=== PATIENT | male | born 1960 | race Caucasian/White ===

== ENCOUNTER 2025-03-09 17:42 | Inpatient (IN) | payer OTHER, SELFPAY ==
[2025-03-09] VITALS (18 sets, daily range): BP systolic 74–111; BP diastolic 45–62; BMI 33.1; BMI 33.2
[2025-03-09 15:53] LABS: Hematocrit 23.2 % (39.0-52.0); Hemoglobin 8.1 g/dL (13.0-18.0); Mean Corp Hgb Conc. 34.9 g/dL (33.0-37.0); Mean Corpuscular Volume 83.8 fL (80.0-94.0); Platelet Count 288 10^3/uL (130-400); Red Cell Dist. Width 14.1 % (11.5-14.5)
--- NOTE | 2025-03-09 15:57 | ED.GENMED ---
History of Present Illness
General
Chief Complaint: Rectal Bleeding
Source: patient and family (Sister)
Exam Limitations: none
Time Seen by Provider: 03/09/25 15:38
History of Present Illness
History of Present Illness:
64-year-old male history of alcohol abuse stopped 2 weeks ago. Has had ongoing melena. Severe weakness. Lightheaded. No chest pain or shortness of breath. No fever.
Past History
Past History
ED Past Medical History: HTN and Other (Neuropathy/chronic pain)
Social History
Tobacco: Smoker
Personal: Single
Living: with family
Employment: Disabled
Review of Systems
Review of Systems
All Other Systems: Not applicable
Constitutional: Denies fever or chills
Respiratory: Reports no symptoms
Cardiac: Reports no symptoms
Phy Exam
Physical Exam
Physical Exam:
GENERAL: Alert and oriented. Pale. Hypotensive. Old for stated age.
EYE: Orbits normal.
NECK: Supple, no significant adenopathy.
ENT: Pharynx without erythema
CARDIAC: Regular rate and rhythm without any obvious murmurs.
LUNGS: Clear breath sounds,normal
ABDOMEN: Soft, without focal tenderness or distention. Melanotic dark stool with diarrhea. Test positive
NEUROLOGICAL: Alert and oriented , grossly non-focal
SKIN: Warm and dry, no rash or lesion, no discoloration, skin intact.
MUSCULOSKELETAL: No edema. Right BKA
PSYCH: Normal and appropriate interaction.
Course
Orders/Labs/Results
Orders:
Orders
03/09/25 Dinner
NPO
Allow oral meds: Yes
Allow clear liquids: Sips of Clears
NPO with Ice Chips: No
03/09/25 15:08
Electrocardiogram (*1) Urgent
Reason for Study: Fatigue / Weakness
03/09/25 15:09
EKG- Treatment ONCE
03/09/25 15:35
Type+Screen Urgent
CMP [Comprehensive Metabolic Panel] Urgent
Complete Blood Count/With Diff Urgent
Troponin I Urgent
03/09/25 15:47
* Blood Bank Products Routine
Blood Bank Products: *Packed RBC Leuko (PRBC's
Quantity: 2
Transfuse Today: Yes
Reason: Bleeding
IV Insert/Care/Rem.- Treatment PRN
03/09/25 15:48
IV Insert/Care/Rem.- Treatment PRN
Pantoprazole 80 mg/100 ml Nss [Protonix] 80 mg in 100 ml IV NOW
Pantoprazole [Protonix IV] 80 mg IV NOW STA
03/09/25 15:53
PT/INR [Prothrombin Time] Urgent
03/09/25 16:00
Urinalysis Reflex To Culture Urgent
03/09/25 16:33
Admit/Transfer Patient As Directed
Co-Sign Provider:
Level of Care: Inpatient admission
Assign to:: IMU- Intermediate Care
Physician / Group: Gopal Costa
Diagnosis: GI bleed, hypotension
Reason for Hospitalization: GI bleed, hypotension
Expected length of stay greater than two midnights?: Yes
ELOS- Estimated Length of Stay in days: 3
I certify the patient meets the requirements for IP care: Yes
03/09/25 16:34
PRN Pain Medication Management As Directed
May give lesser potent ordered pain med per pt: Yes
preference::
Protocol:: Medication orders for pain may be administered in a
manner that supports deferring to patient preference
when the pt is:
- Requesting an ordered lesser potent pain medication.
Least to most potent pain medications are defined
as: acetaminophen < NSAID < tramadol < opioids
(morphine, oxycodone, hydromorphone).
- Requesting a lesser dose of the same medication IF
ORDERED.
- Requesting a less intrusive route of administration
if both routes are prescribed by the provider (PO <
IV).
03/09/25 16:35
Code Status As Directed
Resuscitation Status: Full Code
03/09/25 17:04
Blood Culture Q30M
AMANDA Source: Blood/Venous
Specimen Description:
03/09/25 17:11
Lactic Acid Q4H
Comment: CANCEL 2nd LACTIC ACID IF 1st LACTIC ACID IS LESS THAN 2
Blood Culture Q30M
AMANDA Source: Blood/Venous
Specimen Description:
03/09/25 17:34
0.9% Sodium Chloride 500 ml [Nss] 500 ml IV BOLUS
03/09/25 19:03
0.9% Sodium Chloride 1000 ml [Nss] 1,000 ml IV 125 mls/hr
03/09/25 19:03
GASTROINTESTINAL CONSULT Routine
Consulting Provider: Fabien Martin
Was physician already notified: Yes
Reason for consult: Gi bleed
Activity As Directed
Activity Level: Bedrest
INT (Intravenous Needle Therapy) As Directed
Comment: Place 2 IV catheters of the largest bore possible until stable
Pneumatic Compression Sleeves As Directed
Type: Knee high
Vital Signs As Directed
Frequency: Per unit guidelines
DX Deep Vein Thrombosis Video Routine
03/09/25 20:00
Lactic Acid Q4H
Comment: CANCEL 2nd LACTIC ACID IF 1st LACTIC ACID IS LESS THAN 2
03/10/25 06:00
Basic Metabolic Panel IN AM
Complete Blood Count/No Diff IN AM
03/10/25 23:55
Complete Blood Count/No Diff Routine
Comment: after blood transfusion
03/11/25 06:00
Basic Metabolic Panel IN AM
Complete Blood Count/No Diff IN AM
03/12/25 06:00
Basic Metabolic Panel IN AM
Complete Blood Count/No Diff IN AM
Abnormal Lab Results
03/09/25
15:35
WBC 24.6 H 10^3/uL
(4.8-10.8)
RBC 2.77 L 10^6/uL
(4.70-6.10)
Hgb 8.1 L g/dL
(13.0-18.0)
Hct 23.2 L %
(39.0-52.0)
Abs Immat Gran (auto) 0.2 H 10^3/uL
(0-0.05)
Absolute Neuts (auto) 22.4 H 10^3/uL
(1.4-6.5)
Absolute Lymphs (auto) 0.7 L 10^3/uL
(1.2-3.4)
Absolute Monos (auto) 1.2 H 10^3/uL
(0.1-0.6)
Immature Gran % 1.0 H %
(0-0.5)
Neutrophils % 91.1 H %
(42.2-75.2)
Lymphocytes % 2.8 L %
(20.5-51.1)
Sodium 125 L mmol/L
(135-145)
Chloride 94 L mmol/L
(98-107)
BUN 27 H mg/dl
(9-20)
Glucose 134 H mg/dl
(70-99)
Total Protein 5.9 L g/dl
(6.3-8.2)
Albumin 3.1 L g/dl
(3.5-5.0)
Crossmatch IS Only See Detail
03/09/25 15:35
03/09/25 15:35
Vital Signs
Initial and Last Documented VS:
Initial Vital Signs
Temp Pulse Resp
98 F 86 18
03/09/25 15:03 03/09/25 15:03 03/09/25 15:03
Last Documented Vital Signs
Temp Pulse Resp BP Pulse Ox
98 F 89 17 85/48 100
03/09/25 15:03 03/09/25 18:17 03/09/25 18:00 03/09/25 18:00 03/09/25 17:15
*Pulse Oximetry
SaO2: 96
Oxygen Mode of Delivery: Room air
Patient hypoxic: no
*EKG
Interpreted by ED Provider?: Yes
Interpretation: abnormal
Comparison EKG: changes noted
Heart Rate: 92
Rate: normal
Rhythm: sinus and PAC's
[place]: left axis deviation
Interval: normal interval
QRS Pattern: normal QRS
Ischemia: non-specific ST changes
*Technical Marketing Consultant Interpretation
Rate: normal
Interpretation: normal
Heart Rate: 94
Rhythm: sinus
*Critical Care Note
Total Time (30-74mins, 75-104mins- exclusive of procedures): 45
Update Note
Update Note:
Patient remains mildly hypotensive. Leukocytosis likely reactive. Nothing clinically to suspect sepsis
ED Attending Note
-
Portions of this chart may have been created with voice recognition software.� Occasional wrong word or��sound alike� substitutions may have occurred due to the inherent limitations of voice recognition software.
Discharge Plan
Departure
Patient Disposition: Admit
Date of Disposition: 03/09/25
Time of Disposition: 15:59
Presentation/result/management discussed w/ accepting MD/DO: Gastroenterology
Discharge Problem:
Cardiogenic shock, Secondary to GI bleed, Hyponatremia, History of alcohol abuse
Interventions
Interventions:
*Risk Screen - Suicide Last Done: 03/09/25 15:03
*General Assessment Last Done: 03/09/25 15:03
*Neglect/Abuse Screening Last Done: 03/09/25 15:03
*ED COVID-19 Vaccine History Last Done: 03/09/25 16:33
*ED Influenza Vaccine History Last Done: 03/09/25 16:33
[facility] Assessment Last Done: 03/09/25 16:33
ED- Cardiac Assessment Last Done: 03/09/25 16:33
ED- Pulmonary Assessment Last Done: 03/09/25 16:33
[2025-03-09 16:00] LABS: ALT (SGPT) 18 U/L (0-50); AST (SGOT) 20 U/L (17-59); Albumin 3.1 g/dl (3.5-5.0); Alkaline Phosphatase 44 U/L (38-126); Blood Urea Nitrogen 27 mg/dl (9-20); Calcium 9.1 mg/dl (8.4-10.2); Carbon Dioxide 25 mmol/L (22-30); Chloride 94 mmol/L (98-107); Estimated Creatinine Clearance 78 ml/min; Glucose 134 mg/dl (70-99); Potassium 4.3 mmol/L (3.5-5.1); Sodium 125 mmol/L (135-145); Total Protein 5.9 g/dl (6.3-8.2); eGFR > 60.00
[2025-03-09 16:09] LABS: INR 1.04; PT 13.9 Sec (11.4-14.6)
[2025-03-09 16:11] LABS: Troponin I 0.017 ng/ml
[2025-03-09 16:17] LABS: Nucleated Red Blood Cells % 0 % (-)
[2025-03-09] MEDS: PROTONIX IV 80 MG IV (16:21)
[2025-03-09] MEDS: PROTONIX 100 IV (16:21)
--- NOTE | 2025-03-09 16:39 | HPS.HSE ---
Family Physician
-
Family Physician: KATHI Woodward
Chief Complaint
-
Melena, syncope
History of Present Illness
Patient is a 64-year-old male with past medical history of attention deficit disorder, history of right BKA, alcohol use disorder, wheelchair-bound, essential hypertension, hyperlipidemia was brought in by family member after patient was noted to
having increased generalized weakness and ongoing melena for few days. Patient have history of alcohol use disorder and stopped drinking approximately 2 weeks back. For last 1 week patient was noting black stool, patient denies of having any
previous history of melena. Denies of previous history of peptic ulcer disease/GI bleed. In the morning patient was noted to having little bit of bright red blood in the stool as well. No reported abdominal pain/nausea/vomiting. Patient denies
of having any history of liver disorder. Patient also had an episode of syncope when was on commode, apparently patient remembering of waking up after 1 hour or so. Patient complained of some preceding dizziness/palpitation.
Denies of having any other ongoing problems of headache/chest discomfort/shortness of breath/dysuria.
Medical History
Past Medical History
Past Medical History: Reports Other
Additional Past Medical History:
attention deficit disorder, history of right BKA, alcohol use disorder, wheelchair-bound, essential hypertension, hyperlipidemia
Past Surgical History: Reports Other
Social History
Tobacco: Non-smoker
Alcohol: Former
Drug: None
Personal:
Living: With Family
Family History
Family History: Not pertinent
Allergies / Home Medications
Allergies reflects when Allergies were last updated in [employer].
Home Medications with original date entered in [employer]
Allergy/Medication List:
Allergies
Allergy/AdvReac Type Severity Reaction Status Date / Time
No Known Allergies Allergy Unverified 10/12/21 10:21
Home Medications
acetaminophen 650 mg tablet,extended release (Tylenol Arthritis Pain) 650 mg PO BIDPRN PRN mild pain 10/12/21
aluminum-mag hydroxide-simethicone 200 mg-200 mg-20 mg/5 mL oral susp 15 ml PO TIDPRN PRN gerd 03/09/25
duloxetine 40 mg capsule,delayed release 40 mg PO BIDPRN PRN mild pain 03/09/25
lisinopril 20 mg tablet 20 mg PO DAILY Blood Pressure 03/09/25
methylphenidate HCl 20 mg tablet 20 mg PO TID Mental Health/Anxiety 03/09/25
rosuvastatin 10 mg tablet (Crestor) 10 mg PO DAILY High Cholesterol 03/09/25
Review of Systems
-
A 12 point ROS was completed and negative except as noted: Yes
Physical Exam
Vital Signs
Vital Signs
Temp Pulse Resp BP Pulse Ox
98 F 75 22 86/45 94
03/09/25 15:03 03/09/25 16:30 03/09/25 16:30 03/09/25 16:30 03/09/25 16:33
Physical Exam
General: No Apparent Distress
HEENT: Atraumatic
Respiratory: Clear
Cardiac: S1/S2 and Regular Rhythm; No Murmur or Rub
GI: Soft, Non Tender and Non Distended; No Organomegaly
Musculoskeletal: Other (Right BKA, left leg scabbing skin)
Skin: Other (Fungal infection of left axilla and groin); No Rash
Neuro: Nonfocal/grossly intact
Laboratory Results
-
03/09/25 15:35
03/09/25 15:35
Laboratory Results
PT 13.9 Sec (11.4-14.6) 03/09/25 15:53
INR 1.04 03/09/25 15:53
Total Bilirubin 0.4 mg/dl (0.2-1.3) 03/09/25 15:35
AST 20 U/L (17-59) 03/09/25 15:35
ALT 18 U/L (0-50) 03/09/25 15:35
Alkaline Phosphatase 44 U/L (38-126) 03/09/25 15:35
Troponin I 0.017 ng/ml 03/09/25 15:35
Impression/Plan
-
1. Melena
Acute blood loss anemia
- Baseline hemoglobin of 14 in October 19. This admit hemoglobin of 8.1
- Reported melena ongoing for few days, noted to having bright red blood in the stool today as well per family
- Denies of any previous history of peptic ulcer disease/not on blood thinners/no history of liver disorder
- Patient was started on IV Protonix drip
- Patient getting 1 unit PRBC, follow-up hemoglobin after the
- Made patient n.p.o.
- GI consulted for further evaluation
2. Hypotension
- Patient blood pressure soft, providing NS 500 mL bolus
- May require further bolus if blood pressure not improved after blood transfusion
- Will monitor in IMU for tonight
3. Fungal skin infection
Suspected superimposed Cellulitis
- Leukocytosis of 25k, afebrile
- Involving left groin and lower abdomen/groin
- Skin quite erythematous and tender in left axilla
- Start patient on IV vancomycin and will downgrade to Ancef
4. Attention deficit disorder
- Continue home dose of Adderall 20 mg 3 times daily
5. alcohol use disorder
- Patient had stopped drinking approximately 2 weeks back
- Continuation of alcohol abstinence will be recommended moving forward
6. Syncope episode
- Reported syncopized at home when was on commode
- Likely combination of vasovagal due to volume depletion/blood loss and hypotension related
- continue monitoring
history of right BKA
wheelchair-bound
essential hypertension - hold bP medication
hyperlipidemia
DVTPPX - SCD
Full code
Total time spent : 78 mins
I personally saw and examined the patient.
I have reviewed all diagnostic interpretations and treatment plans as written.
Time includes patient management by me, time spent at the patients bedside, time to review lab and imaging results, discussing patient care, documentation in the medical record, and time spent with the family or caregiver and discussing care plan
with RN/Consultants.
[2025-03-09] MEDS: ANCEF 10 IV (18:09)
[2025-03-09] MEDS: NSS 500 IV (18:23)
--- NOTE | 2025-03-09 20:07 | PTCARENOTE ---
Patient transported to IMU via stretcher. Pt slid over onto bed. Pt receiving first 500ml NSS bolus running on admission to IMU. Pt to receive 1000L bolus as well as PRBC's. Sent to first unit of PRBC's. Pt states dizziness and feeling lightheaded.
BP is soft. Pt had a large dark red BM. KATHI Farrell made aware of current status. Care is ongoing.
[2025-03-09] MEDS: NSS 1000 IV ×3 (20:31→22:31)
[2025-03-09] MEDS: ZOFRAN 4 MG IV (21:24)
--- NOTE | 2025-03-09 23:24 | PTCARENOTE ---
Patient received a total of 2.5L bolus fluids. Pt finished getting 1 unit PRBC's. Second unit of PRBC's transfusing currently. Pt has maintenance fluids running at 125ml/hr. Pt is actively still having loose dark red/burgundy stools. Pt appears
pallor and states he has been experiencing symptoms for a week. Pt having nausea, KATHI Farrell ordered dose of IV Zofran. Pt states minimal relief. Pt AAOx3. BP soft systolic in the 90s s/p bolus fluids. KATHI Farrell increased INF 150ml/hr. [facility] park is
within reach.
--- NOTE | 2025-03-09 23:32 | W.PN.UPDATE ---
Update Note
Progress Note Update
-Patient is hypotensive after receiving bolus 2500cc and while on IVF/ NSS 125/hr.
-Rate changed to 150s and another 500cc bolus was given, patient still hypotensive with SBP 70s-80s. Currently patient is receiving blood transfusion.
-levophed started
-Recheck hgb level with no changes after blood transfusions, patient had 5-6 bloody bm at night and giving the hypotension and pressors requirements will give another unit of blood.
-Will monitor h&h q 6 hrs
[2025-03-10] VITALS (40 sets, daily range): BP systolic 65–130; BP diastolic 38–98
[2025-03-10 00:17] LABS: Urine Character Clear (Clear)
[2025-03-10 00:28] LABS: Urine Squamous Cell 0-2 /LPF (Few)
[2025-03-10 00:29] LABS: Urine Red Blood Cell 0-2 /HPF (0-2)
[2025-03-10] MEDS: ANCEF 10 IV ×2 (01:18→13:04)
[2025-03-10] MEDS: PROTONIX 100 IV ×3 (01:18→23:35)
[2025-03-10] MEDS: COMPAZINE 5 MG IV (01:18)
[2025-03-10] MEDS: LEVOPHED 250 IV ×2 (02:14→13:17)
--- NOTE | 2025-03-10 02:26 | PTCARENOTE ---
Patient received 2 units PRBC's. Pt has had 4 large burgundy loose stools. Pt hypotensive. BP systolic in the 70's. KATHI Farrell made aware, Levophed gtt ordered for MAP >65, see JUN.
[2025-03-10] MEDS: NSS 500 IV (02:31)
[2025-03-10] MEDS: NSS 1000 IV ×2 (03:00→09:58)
[2025-03-10 04:31] LABS: Blood Urea Nitrogen 23 mg/dl (9-20); Calcium 8.2 mg/dl (8.4-10.2); Carbon Dioxide 23 mmol/L (22-30); Chloride 102 mmol/L (98-107); Estimated Creatinine Clearance 76 ml/min; Glucose 101 mg/dl (70-99); Potassium 4.6 mmol/L (3.5-5.1); Sodium 129 mmol/L (135-145); eGFR > 60.00
[2025-03-10 05:05] LABS: Hematocrit 24.5 % (39.0-52.0); Hemoglobin 8.1 g/dL (13.0-18.0); Mean Corp Hgb Conc. 33.1 g/dL (33.0-37.0); Mean Corpuscular Volume 89.4 fL (80.0-94.0); Platelet Count 196 10^3/uL (130-400); Red Cell Dist. Width 14.6 % (11.5-14.5)
--- NOTE | 2025-03-10 06:52 | CON.GI ---
Addendum entered and electronically signed by Gin Rubio Do, MD 03/10/25 10:35:
I saw and examined the patient.
The AMMONIA BOX OPERATOR's note was reviewed and I agree with the note.
Comment: Mr Sullivan is a 64yo M with h/o ETOH abuse, HTN and BKA with chronic pain who was admitted for SOB and LH. GI consulted for anemia Hbg 8.1 down from 14 in 2021 with dark heme + stool and burgundy stools. He also has limited ROM in
shoulder concerning for cellulitis. He's never had EGD. Last Cscope >10yrs ago. Vitals hypotensive on levophed. NTTP, NABS. Labs reviewed Hbg 8.1 to 8.1 after 2u PRBC overnight.
Impression
- Burgundy stools and acute anemia
Ddx includes ulcer, ectasia or occult malignancy. Also consider diverticular.
- Wt loss
- Change in bowel habits
- GERD
- Shoulder pain
- Leukocytosis
- SOB/LH
- ADD
- ETOH use
- HTN
- Hyperlipidemia
- OP
- Chronic pain
- R BKA
Recommendations
- Recommend urgent EGD/enteroscopy today
- Serial H/H. Awaiting third transfusion today
- 2 large bore IVs
- NPO for now
- Agree with infectious workup
- Await iron studies
Above d/w hospitalist. Will follow with you
Original Note:
Consultation
-
Date/Time Consultation Requested: 03/09/25 1900
Date/Time Consultation Performed: 03/10/25 0830
Requesting Provider: Geo Costa MD
Performing Provider: KATHI Ron, Gin Painter MD
Reason for Consultation: black stools
Medical History
Chief Complaint / HPI
History of Present Illness:
Pt is a 64yo with hx HTN, hypercholesterolemia, anxiety, ADD, ETOH abuse, BKA, neuropathy, chronic pain presents to ER with rectal bleeding with lightheadedness and shortness of breath. Rectal in ER with dark heme + stool and also noted with
hypotension with syncope and skin infection with leukocytosis. Labs on admission with WBC 24,600, hbg 8.1 with last hbg 14.3 in 2021, platelets 288, INR 1.04, Na 125, BUN27, creat 1.3, bili 0.4, AST 20, ALT 18, alk phos 44, albumin 3.1.
In review with patient he admits to not feeling well for last week. About 2 weeks ago reached limit of ETOH use and stopped drinking. He declined to come to hospital but then noted passing out by family and agreed to come. He admits to
occasional odynophagia, + occasional dysphagia with food sticking in mid esophagus. He has chronic GERD not on any medications. He also admits admits to recurrent episode of vomiting. He was consume same amount of food and drinks and vomiting
some days and not on other days. He also admits to mid abdominal pain without pattern of what makes pain better or worse. He recently over last week noted dark stools but also admits to some dark red stools with chronic alternating diarrhea and
constipation. No hx EGD in past. Prior colonoscopy about 10 years ago with polyps done through [facility]. + wt loose was about 350 lbs 1 years ago now 240 range. No NSAID or anticoagulation use.
Past Medical History
Past Medical History: HTN, Hypercholesterolemia, Psychiatric (ADD, ETOH abuse, anxiety ) and Other (gout, neuropathy, chronic pain, anemia, osteoporosis )
Past Surgical History: Orthopedic (ankle surgery ) and Other (right BKA-- due to complications with multiple surgeries -- pt would not talk about details )
Social History
Tobacco: Smoker
Alcohol: Chronic Alcoholic (last drink 2 weeks ago )
Drug: None
Living: With Family (sister )
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
Family History
Family History: Other (both parents with hx colon CA in 80's)
Allergies / Home Medications
Allergy/AdvReac Type Severity Reaction Status Date / Time
No Known Allergies Allergy Unverified 10/12/21 10:21
�Medication �Instructions �Recorded
acetaminophen 650 mg 650 mg PO BIDPRN PRN mild pain 10/12/21
tablet,extended release (Tylenol
Arthritis Pain)
aluminum-mag hydroxide-simethicone 15 ml PO TIDPRN PRN gerd 03/09/25
200 mg-200 mg-20 mg/5 mL oral susp
duloxetine 40 mg capsule,delayed 40 mg PO BIDPRN PRN mild pain 03/09/25
release
lisinopril 20 mg tablet 20 mg PO DAILY Blood Pressure 03/09/25
methylphenidate HCl 20 mg tablet 20 mg PO TID Mental Health/Anxiety 03/09/25
rosuvastatin 10 mg tablet (Crestor) 10 mg PO DAILY High Cholesterol 03/09/25
Review of Systems
-
History Source: Patient
Constitutional: Reports Weight Loss and Fatigue
EENT: Reports No Symptoms
Respiratory: Reports Trouble Breathing
Cardiac: Reports Syncope
Abdomen/GI: Reports Abdominal Pain, Nausea, Vomiting, Diarrhea (with dark stools), Bloody Stools (dark red stools) and Black Stools
: Reports No Symptoms
Musculoskeletal: Reports Other (weakness with ambulation )
Skin: Reports Rash (under skin fold arm pit and groin area )
Neurological: Reports Dizzy and Weakness
Endocrine: Reports No Symptoms
Hematologic/Lymphatic: Reports Bleeding
Vital Signs
Temp Pulse Resp BP Pulse Ox
99.2 F 66 12 105/55 100
03/10/25 03:00 03/10/25 06:00 03/10/25 06:00 03/10/25 06:00 03/10/25 06:00
Physical Exam
Exam
General: No Apparent Distress and Other (pale appearing )
HEENT: Normocephalic and Anicteric
Respiratory: Clear
Cardiac: Other (bradicardia )
GI: Soft, Non Distended and Tender (minimal mid abdomen )
Rectal: Other (heme + dark stools)
Musculoskeletal: No Clubbing and No Cyanosis
Skin: Warm and Dry
Neuro: Awake, Alert and AO x 3
Psych: Calm
Results
WBC 15.9 10^3/uL (4.8-10.8) H 03/10/25 03:53
Hgb Cancelled 03/10/25 14:30
Hct Cancelled 03/10/25 14:30
MCV 89.4 fL (80.0-94.0) 03/10/25 03:53
Plt Count 196 10^3/uL (130-400) D 03/10/25 03:53
Absolute Neuts (auto) 22.4 10^3/uL (1.4-6.5) H 03/09/25 15:35
PT 13.9 Sec (11.4-14.6) 03/09/25 15:53
INR 1.04 03/09/25 15:53
Sodium 129 mmol/L (135-145) L 03/10/25 03:53
Potassium 4.6 mmol/L (3.5-5.1) 03/10/25 03:53
Chloride 102 mmol/L (98-107) 03/10/25 03:53
Carbon Dioxide 23 mmol/L (22-30) 03/10/25 03:53
BUN 23 mg/dl (9-20) H 03/10/25 03:53
Creatinine 1.3 mg/dL (0.7-1.3) 03/10/25 03:53
Calcium 8.2 mg/dl (8.4-10.2) L 03/10/25 03:53
Total Bilirubin 0.4 mg/dl (0.2-1.3) 03/09/25 15:35
AST 20 U/L (17-59) 03/09/25 15:35
ALT 18 U/L (0-50) 03/09/25 15:35
Alkaline Phosphatase 44 U/L (38-126) 03/09/25 15:35
Diagnostic Image Results:
Prior GI Procedures:
EGD: none
Colonoscopy: last 10 years ago [facility] multiple polyps
Assessment / Plan
-
Pt is a 64yo with hx HTN, hypercholesterolemia, anxiety, ADD, ETOH abuse, BKA, neuropathy, chronic pain presents to ER with rectal bleeding with lightheadedness and shortness of breath. Rectal in ER with dark heme + stool and hypotension with
syncope and fungal infection with leukocytosis. Labs on admission with WBC 24,600, hbg 8.1 with last hbg 14.3 in 2021, platelets 288, INR 1.04, Na 125, BUN27, creat 1.3, bili 0.4, AST 20, ALT 18, alk phos 44, albumin 3.1. Pt admits to recent wt
loss, chronic nausea, vomiting, GERD, abdominal pain, diarrhea, constipation and now onset of bleeding. NO NSAIDs or anticoagulation. No prior EGD. Last colon 10 years ago.
-melena/burgundy stools
-anemia
-hypotension requiring pressors on admission with syncope
-hx multiple GI complaints with nausea, vomiting, abdominal pain, wt loss, diarrhea, constipation
-leukocytosis on admission
-skin infection
-hx ETOH abuse
-wt loss over last year
other med problems:
- HTN
- hypercholesterolemia
-anxiety
- ADD
-BKA with ambulatory dysfunction
-neuropathy
-chronic pain
-hx colon polyps
PLAN:Etiology of melena/burgundy stools related to upper/lower vs SB bleeding-- PUD, ectasia, mass vs other
less likely ETOH related as LFT's, INR, and platelets normal
Pt with syncope but minimal BUN elevation
Pt remains currently on Levophed -- nursing will try to wean with next transfusion but has multiple stools overnight
s/p 2 units PRBC's given overnight with 3 rd unit to run this am
hbg 8.1 then 8.1 on repeat
will review with Dr. Painter for EGD today vs CTA
if EGD neg will need to consider colonoscopy
trend hbg transfuse as needed
if EGD neg consider colon
cont PPI Gtt
add iron studies to ER labs
NPO
remains on abx for rash
reviewed with Dr. Costa and nursing staff
-
-
Thank you for consultation and allowing me to participate in the patient's care. Please call the cotton picker operator GI physician during the after hours with any questions or concerns.
--- NOTE | 2025-03-10 07:49 | PTCARENOTE ---
Assumed care of patient this AM. Patient levo drip at 6mcghr. Last BP 85/57 (66). IV fluids and protonix drip infusing as ordered. Patient AA0x3. Patient reports nausea. NPO as ordered.
[2025-03-10] MEDS: DESENEX/MITRAZOL/ZEASORB 1 APPLIC TOPICAL ×2 (07:59→20:13)
[2025-03-10 10:29] LABS: Iron 84 ug/dl (49-181)
[2025-03-10 10:39] LABS: Total Iron Binding Capacity 220 ug/dl (261-462)
[2025-03-10 11:04] LABS: Ferritin 160.0 ng/ml (17.9-464.0)
--- NOTE | 2025-03-10 11:04 | PTCARENOTE ---
3rd unit of PRBC transfusing. Using the pink slip for transfusing because patient is at GI lab. Transfusion started at 10:25am 97.5 (oral temp) 100/56.58,16. 15 minute VS at 10:40am 98.2,100/59,63,18. Levo remains at 6mcg. Patient currently off
unit to GI lab for EGD.
--- NOTE | 2025-03-10 12:09 | CM ---
Addendum entered by Miladis Carvajal 03/10/25 12:14:
KORTNEY Redding asked if the patient has questions about an Advance Directive/ Medical P.O.A etc. Patient did and so KORTNEY Redding explained what A POLST vs. Advance Directive form is as well as a Medical Power of Landscape Laborer as well as Financial. KORTNEY Redding
provided the POLST and Medical P.O.A forms for him to review/ complete for himself with his family. KORTNEY Redding explained the hierarchy of who can make decisions if he cannot in his family sighting that if he is still , his would be the
person so if he wants his sister to be, he needs to have her sign for decision maker.
Original Note:
I.A: Completed By KORTNEY Redding.
Patient lives with his Sister in a 3 Story House, he lives in the Basement, has an elevator, uses a rolling walker rollator, and wheelchair. Patient does not have any VN/PT and said he was at [facility] for 4 years (?), and only has had Outpatient
PT after that. The patient has been at his sister for about 1 year. Patient said that he is estranged from his and that his takes care of his son (?) who is a teenager, perhaps just that the son is just living with mom.
PCP: Dr. Marlin Rees
Pharmacy: [facility] on [facility]
Patient has transport when ready and Case Management to follow for discharge needs. PLAN: Home PT vs. No Needs.
--- NOTE | 2025-03-10 12:45 | PTCARENOTE ---
Patient back from GI lab. Patient alert and awake. VS stable. Levo drip infusing. PRBC's almost done infusing. Patient on clear liquid diet. SR on monitor HR 60's. Will continue to monitor frequently.
--- NOTE | 2025-03-10 12:48 | PN.CDI ---
CDI
- -
CDI:
Physician Documentation Request
Admit Date: 03/09/25 17:42
Dear Doctor Do,
Please review the following and provide your response in the progress notes.
Clinical Indicators:
Pt admitted with GI bleed/ABLA
Documented per small bowel endoscopy,' One oozing cratered duodenal ulcer with pigmented material was
found in the duodenal bulb. The lesion was 8 mm in largesdimension. Coagulation for hemostasis using bipolar probe
was successful..'
Clarify which of the following accurately represents the suspected acuity of the ( duodenal ulcer ):
Acute
Acute on Chronic
Chronic
Other ( please specify)
Use of terms such as suspected, likely, concern for, or probable (associated with a specific diagnosis that is being evaluated, monitored, or treated as if it exists) are acceptable and can be coded in the inpatient setting, when documented at the
time of discharge.
Thank you,
Maggy Santana RN
CDI Specialist
[employer]
Please use your independent medical judgment in providing your response.
[2025-03-10] MEDS: FLUSH (NSS) 2 FLUSH IV (13:05)
--- NOTE | 2025-03-10 13:42 | W.PN.HOSP.TC ---
Today's Communication/Plan
-
PRBC transfusion
Maintain Protonix drip
Initiated liquid diet
Wean of pressors as possible
Follow-up hemoglobin
Assessment / Plan
Assessment / Plan
1. Upper gi bleed from Duodenal ulcer
Esophagitis
Acute blood loss anemia
- Baseline hemoglobin of 14 in October 19. This admit hemoglobin of 8.1
- Reported melena ongoing for few days, noted to having bright red blood in the stool today as well per family
- Denies of any previous history of peptic ulcer disease/not on blood thinners/no history of liver disorder
- Patient was started on IV Protonix drip
- Patient getting 3rd unit prbc today.
- EGD showing duodenal ulcer with bleeding vessel which was cauterized, also have grade C esophagitis
- Full liquid diet started by GI, advancement per GI.
- GI consulted for further evaluation
2. Hypovolemic shock
- Patient got 30 mL KG fluid bolus still remained hypotensive and required to be started on Levophed overnight
- wean off pressors as possible
3. Fungal skin infection
Suspected superimposed bacterial Cellulitis
- Leukocytosis of 25k, afebrile - trended down
- Involving left groin and lower abdomen/groin
- Skin quite erythematous and tender in left axilla
- Maintain patient on ancef and topical anti-fungal therapy
4. Attention deficit disorder
- Continue home dose of Adderall 20 mg 3 times daily
5. alcohol use disorder
- Patient had stopped drinking approximately 2 weeks back
- Continuation of alcohol abstinence will be recommended moving forward
6. Syncope episode
- Reported syncopized at home when was on commode
- Likely combination of vasovagal due to volume depletion/blood loss and hypotension related
- continue monitoring
history of right BKA
wheelchair-bound
essential hypertension - hold bP medication
hyperlipidemia
DVTPPX - SCD
Full code
Care plan discussed with gastroenterology
Total critical care time 38 mins . Total critical care time documented does not include time spent on separately billed procedures or the services of residents, students, nurses or physician assistants. I personally saw and examined the patient. I
have reviewed all diagnostic interpretations and treatment plans as written. I was present for the serrato portions of any procedures performed and the inclusive time noted in any critical care statement. Critical care time includes patient management
by me, time spent at the patients bedside, time to review lab and imaging results, discussing patient care, documentation in the medical record, and time spent with the family or caregiver.
Anticipated Discharge: > 48 hours
Subjective/Interval History
-
Date of Service: March 10, 2025
Patient continued to have burgundy/black stool overnight
Patient developed shock and required to be started on vasopressor in the night
Objective Data
-
Labs:
Laboratory Results
03/10/25 03/10/25 03/10/25
02:30 03:53 03:53
WBC 15.9 H
Hgb Cancelled 8.1 L Cancelled
Hct Cancelled 24.5 L
Plt Count
Sodium
Potassium
Chloride
Carbon Dioxide
BUN
Creatinine
Glucose
Calcium
03/10/25 03/10/25 03/10/25
03:53 08:30 08:46
WBC
Hgb Cancelled
Hct Cancelled Cancelled
Plt Count 196 D
Sodium 129 L Pending
Potassium 4.6 Pending
Chloride 102 Pending
Carbon Dioxide 23 Pending
BUN 23 H Pending
Creatinine 1.3 Pending
Glucose 101 H Pending
Calcium 8.2 L Pending
03/10/25 03/10/25 03/10/25
09:30 14:30 15:30
WBC
Hgb Pending Cancelled Pending
Hct Pending Cancelled Pending
Plt Count
Sodium
Potassium
Chloride
Carbon Dioxide
BUN
Creatinine
Glucose
Calcium
Vital Signs:
Vital Signs
Temp Pulse Resp BP Pulse Ox
98.4 F 70 15 114/89 99
03/10/25 13:21 03/10/25 13:21 03/10/25 13:21 03/10/25 13:21 03/10/25 13:21
I&O
03/09/25 03/10/25 03/11/25
06:59 06:59 06:59
Intake Total 3750 / 3750
Output Total 1100 / 1100 575 / 575
Balance 2650 / 2650 -575 / -575
Review of Systems
-
Respiratory: Reports No Symptoms
Cardiac: Reports No Symptoms
Abdomen/GI: Reports Diarrhea, Bloody Stools and Black Stools
Physical Exam
-
General: Morbidly Obese
HEENT: Negative Oxygen
Respiratory: Clear to Auscultation
Cardiac: Regular Rhythm and S1/S2; Negative Murmur
GI: Soft, Nontender and Nondistended
Musculoskeletal: Other (Right BKA)
Skin: Other (Left axilla and groin rash)
Neuro: Awake, Alert and Oriented
[2025-03-10 16:07] LABS: Hematocrit 27.8 % (39.0-52.0); Hemoglobin 9.1 g/dL (13.0-18.0)
[2025-03-10] MEDS: TYLENOL 650 MG PO (16:15)
[2025-03-10] MEDS: CARAFATE SUSPENSION 1 GM PO ×2 (16:15→22:49)
[2025-03-10 16:22] LABS: Blood Urea Nitrogen 17 mg/dl (9-20); Calcium 7.9 mg/dl (8.4-10.2); Carbon Dioxide 22 mmol/L (22-30); Chloride 100 mmol/L (98-107); Estimated Creatinine Clearance 90 ml/min; Glucose 135 mg/dl (70-99); Potassium 4.3 mmol/L (3.5-5.1); Sodium 125 mmol/L (135-145); eGFR > 60.00
[2025-03-10] MEDS: INVANZ 60 MG IV (17:21)
[2025-03-10] MEDS: FLUSH (NSS) 1 FLUSH IV (17:22)
--- NOTE | 2025-03-10 18:06 | PTCARENOTE ---
Patient has positive blood cultures ESBL. MD aware. Antibiotics changed. This afternoon patients oral temperature 103.3. Tylenol given. Repeat temperature 99.8. Levo drip infusing at 3mcg/hr. IV fluids and protonix drip infusing as ordered.
Patient tolerating full liquids. Will continue to monitor.
[2025-03-11] VITALS (14 sets, daily range): BP systolic 80–135; BP diastolic 44–98
[2025-03-11 00:43] LABS: Hematocrit 25.0 % (39.0-52.0); Hemoglobin 8.3 g/dL (13.0-18.0); Mean Corp Hgb Conc. 33.2 g/dL (33.0-37.0); Mean Corpuscular Volume 90.6 fL (80.0-94.0); Platelet Count 194 10^3/uL (130-400); Red Cell Dist. Width 14.9 % (11.5-14.5)
[2025-03-11] MEDS: NSS 1000 IV (01:32)
--- NOTE | 2025-03-11 02:05 | PTCARENOTE ---
Patient A-febrile. NSR to SB on the monitor HR down to low 50s. Levo gtt weaned to 1mcg/min. Protonix gtt cont. IVF @ 75/hr. Pt remains on room air, 95%. Moist productive cough. One smear burgundy/black stool. Desenex applied to armpits and groin.
Pt using urinal independently. Call park within reach.
[2025-03-11] MEDS: TYLENOL 650 MG PO (03:35)
--- NOTE | 2025-03-11 04:05 | PTCARENOTE ---
Patient weaned off Levophed. VSS. BP stable.
[2025-03-11] MEDS: CHLORASEPTIC/SORE THROAT SPRAY 1 SPRAY PO (04:35)
[2025-03-11 05:31] LABS: Hematocrit 26.3 % (39.0-52.0); Hemoglobin 8.7 g/dL (13.0-18.0); Mean Corp Hgb Conc. 33.1 g/dL (33.0-37.0); Mean Corpuscular Volume 88.0 fL (80.0-94.0); Platelet Count 198 10^3/uL (130-400); Red Cell Dist. Width 14.9 % (11.5-14.5)
[2025-03-11 05:49] LABS: Blood Urea Nitrogen 13 mg/dl (9-20); Calcium 7.9 mg/dl (8.4-10.2); Carbon Dioxide 24 mmol/L (22-30); Chloride 100 mmol/L (98-107); Estimated Creatinine Clearance 90 ml/min; Glucose 91 mg/dl (70-99); Potassium 4.2 mmol/L (3.5-5.1); Sodium 123 mmol/L (135-145); eGFR > 60.00
[2025-03-11] MEDS: PROTONIX 100 IV ×2 (07:32→18:22)
[2025-03-11] MEDS: DESENEX/MITRAZOL/ZEASORB 1 APPLIC TOPICAL ×2 (07:33→20:55)
[2025-03-11] MEDS: CARAFATE SUSPENSION 1 GM PO ×4 (07:33→21:54)
--- NOTE | 2025-03-11 11:05 | W.PN.GI.CBS2 ---
Addendum entered and electronically signed by Gin Rubio Do, MD 03/12/25 13:00:
CDI response
His duodenal ulcer as acute on EGD
Addendum entered and electronically signed by Gin Rubio Do, MD 03/11/25 13:55:
I saw and examined the patient.
The TACK DRILLER's note was reviewed and I agree with the note.
Comment: He passed dark blood yesterday. No abd pain, asking for diet advancement. Vitals stable, NTTP obese BKA noted. Labs reviewed Hbg stable.
Recommendation
- Adv to low residue diet
- Serial H/H
- PPI gtt x 72hrs then BID x12 wks. Repeat EGD in 3mo to ensure healing
- ETOH cessation
- C/w carafate x2 wks
GI will sign off please call for ?
He will follow up with me in office.
Original Note:
Today's Communication / Plan
-
PLAN:EGD as noted with esophagitis/ Duodenal ulcer- pigmented material and bipolar cauterization
last stool 03/10 dark no further stool overnight night
cont Protonix gtt to complete 72 hours
cont Carafate QID
monitor for any recurrent syncope
hbg stable 8.7 and BUN normalized
total 3 units PRBC's given during admission
low rsidue diet
remains on abx per medical team
reviewed with patient will need 2- month follow up appt then repeat EGD
Assessment / Plan
-
Pt is a 64yo with hx HTN, hypercholesterolemia, anxiety, ADD, ETOH abuse, BKA, neuropathy, chronic pain presents to ER with rectal bleeding with lightheadedness and shortness of breath. Rectal in ER with dark heme + stool and hypotension with
syncope and fungal infection with leukocytosis. Pt admits to recent wt loss, chronic nausea, vomiting, GERD, abdominal pain, diarrhea, constipation and now onset of bleeding. NO NSAIDs or anticoagulation. EGD completed on admission with concern
for esophagitis and oozing DU with pigmented material and treatment with bipolar cautery. Last colon 10 years ago.
03/10/25 EGD - Do - LA Grade C reflux esophagitis with no bleeding.
- Gastritis, characterized by erythema.
- Oozing duodenal ulcer with pigmented material. Treated with
bipolar cautery.
- The examined portion of the jejunum was normal.
- No specimens collected.
-melena/burgundy stools
-EGD with concern for esophagitis/ Duodenal ulcer- pigmented material and bipolar cauterization
-anemia(iron 84, TIBC 220, % sat 38, ferritin 160)
-hypotension requiring pressors on admission with syncope
-hx multiple GI complaints with nausea, vomiting, abdominal pain, wt loss, diarrhea, constipation
-leukocytosis
-skin infection
-hx ETOH abuse
-wt loss over last year
other med problems:
- HTN
- hypercholesterolemia
-anxiety
- ADD
-BKA with ambulatory dysfunction
-neuropathy
-chronic pain
-hx colon polyps
PLAN:EGD as noted with esophagitis/ Duodenal ulcer- pigmented material and bipolar cauterization
last stool 03/10 dark no further stool overnight night
cont Protonix gtt to complete 72 hours
cont Carafate QID
monitor for any recurrent syncope
hbg stable 8.7 and BUN normalized
total 3 units PRBC's given during admission
low rsidue diet
remains on abx per medical team
reviewed with patient will need 2- month follow up appt then repeat EGD
Subjective
Subjective
Date of Service: March 11, 2025
pt feeling ok -- states another episode of syncope 03/10, last stool darker in color
Objective
Data Reviewed
Laboratory Data:
Laboratory Results
03/11/25 04:53
03/11/25 04:53
Laboratory Results
PT 13.9 Sec (11.4-14.6) 03/09/25 15:53
INR 1.04 03/09/25 15:53
Total Bilirubin 0.4 mg/dl (0.2-1.3) 03/09/25 15:35
AST 20 U/L (17-59) 03/09/25 15:35
ALT 18 U/L (0-50) 03/09/25 15:35
Alkaline Phosphatase 44 U/L (38-126) 03/09/25 15:35
Vital Signs and I&O:
Vital Signs
Temp Pulse Resp BP Pulse Ox
97.6 F 68 25 103/56 97
03/11/25 07:15 03/11/25 10:00 03/11/25 10:00 03/11/25 09:20 03/11/25 09:19
I&O
03/10/25 03/11/25 03/12/25
06:59 06:59 06:59
Intake Total 3750 / 3750 5429 / 5429 780 / 780
Output Total 1100 / 1100 4405 / 4405 1300 / 1300
Balance 2650 / 2650 1024 / 1024 -520 / -520
Physical Exam
Physical Exam
HEENT: Anicteric and Moist mucous membranes
Cardiology: Normal Sinus Rhythm
Pulmonary: Clear
GI: Soft, Non Distended, Non Tender and Normal Bowel Sounds
Extremities: No Edema
Neuro: Non Focal
[2025-03-11] MEDS: NSS IV (11:22)
--- NOTE | 2025-03-11 11:34 | W.CON.NEPH ---
Addendum entered and electronically signed by Chepe Romero DO 03/11/25 11:48:
Critical hyponatremia requiring critical care time 35 minutes
Original Note:
Consultation
-
Date/Time Consultation Requested: 03/11/2025 at 9 AM
Date/Time Consultation Performed: March 11, 2025 at 11 AM
Requesting Provider: Gopal Costa
Performing Provider: Dr. Romero
Reason for Consultation: Hyponatremia
Medical History
-
Chief Complaint: Hyponatremia
History of Present Illness:
64-year-old male with past medical history of attention deficit disorder, history of right BKA, alcohol use disorder, wheelchair-bound, essential hypertension, hyperlipidemia was brought in by family member after patient was noted to having
increased generalized weakness and ongoing melena for few days. Also had a syncopal event. Presented hypotensive requiring pressors status post GI workup on PPI. EGD showed duodenal ulcers which were cauterized.
Renal consultation for hyponatremia down to 123. Drinking significant amount of water and is on normal saline
Past Medical History
Past medical history of attention deficit disorder, history of right BKA, alcohol use disorder, wheelchair-bound, essential hypertension, hyperlipidemia
Social History
Tobacco: Smoker
Alcohol: Daily
Family History
Family History: Not Pertinent
Allergies / Home Medications
Allergy/AdvReac Type Severity Reaction Status Date / Time
No Known Allergies Allergy Unverified 10/12/21 10:21
�Medication �Instructions �Recorded �Confirmed �Type
acetaminophen 650 mg 650 mg PO BIDPRN PRN mild pain 10/12/21 03/09/25 History
tablet,extended release (Tylenol
Arthritis Pain)
aluminum-mag hydroxide-simethicone 15 ml PO TIDPRN PRN gerd 03/09/25 03/09/25 History
200 mg-200 mg-20 mg/5 mL oral susp
duloxetine 40 mg capsule,delayed 40 mg PO BIDPRN PRN mild pain 03/09/25 03/09/25 History
release
lisinopril 20 mg tablet 20 mg PO DAILY Blood Pressure 03/09/25 03/09/25 History
methylphenidate HCl 20 mg tablet 20 mg PO TID Mental Health/Anxiety 03/09/25 03/09/25 History
rosuvastatin 10 mg tablet (Crestor) 10 mg PO DAILY High Cholesterol 03/09/25 03/09/25 History
Review of Systems
-
All other systems: Negative unless noted
Physical Exam
Vital Signs
Vital Signs
Temp Pulse Resp BP Pulse Ox
97.6 F 68 25 103/56 97
03/11/25 07:15 03/11/25 10:00 03/11/25 10:00 03/11/25 09:20 03/11/25 09:19
Lab Results
WBC 12.6 10^3/uL (4.8-10.8) H 03/11/25 04:53
RBC 2.99 10^6/uL (4.70-6.10) L 03/11/25 04:53
Hgb 8.7 g/dL (13.0-18.0) L 03/11/25 04:53
Hct 26.3 % (39.0-52.0) L 03/11/25 04:53
Plt Count 198 10^3/uL (130-400) 03/11/25 04:53
Sodium 123 mmol/L (135-145) L 03/11/25 04:53
Potassium 4.2 mmol/L (3.5-5.1) 03/11/25 04:53
Chloride 100 mmol/L (98-107) 03/11/25 04:53
Carbon Dioxide 24 mmol/L (22-30) 03/11/25 04:53
BUN 13 mg/dl (9-20) 03/11/25 04:53
Creatinine 1.1 mg/dL (0.7-1.3) 03/11/25 04:53
eGFR > 60.00 03/11/25 04:53
Glucose 91 mg/dl (70-99) 03/11/25 04:53
Calcium 7.9 mg/dl (8.4-10.2) L 03/11/25 04:53
Albumin 3.1 g/dl (3.5-5.0) L 03/09/25 15:35
Physical Exam
General no acute distress
HEENT no cephalic atraumatic extraocular muscle intact no scleral icterus no JVD neck supple
lungs clear to auscultation bilateral
heart regular S1-S2 positive
abdomen soft nontender positive bowel sounds
extremities amputation trace edema
Neurologically nonfocal alert and oriented x 3
Skin no lesions no abrasions no petechiae
Psych normal affect no bizarre behavior
Data Reviewed
-
Labs: Labs Reviewed by me, Discussed with Nurse and Discussed with Patient
Assessment/Plan
-
64-year-old male with past medical history of attention deficit disorder, history of right BKA, alcohol use disorder, wheelchair-bound, essential hypertension, hyperlipidemia was brought in by family member after patient was noted to having
increased generalized weakness and ongoing melena for few days. Also had a syncopal event. Presented hypotensive requiring pressors status post GI workup on PPI. EGD showed duodenal ulcers which were cauterized.
Renal consultation for hyponatremia down to 123. Drinking significant amount of water and is on normal saline
Impression
Hyponatremia secondary increased ADH low blood pressures superimposed with excessive water intake
Anemia status post GI bleed and hypovolemic shock brief pressors. Support
Hypotension
Plan
Fluid restriction discussed with the patient in detail drinking 1 start 1 cup of water per hour
Serial BMP
If sodium continues to decrease on fluid restriction will need to start 3% saline
Agree with midodrine may need to increase the dose
Discussed with his nurse
We will hold on Samsca
--- NOTE | 2025-03-11 11:52 | W.PN.HOSP.TC ---
Addendum entered and electronically signed by Gopal Costa MD 03/11/25 14:48:
Hyponatremia
- worsening again and sodium down to 123
- nephrology help has been requested
Original Note:
Today's Communication/Plan
-
see note
transfer telemetery
monitor hbg
Assessment / Plan
Assessment / Plan
1. Upper gi bleed from Duodenal ulcer
Esophagitis
Acute blood loss anemia
- Baseline hemoglobin of 14 in October 19. This admit hemoglobin of 8.1
- Reported melena ongoing for few days, noted to having bright red blood in the stool today as well per family
- Denies of any previous history of peptic ulcer disease/not on blood thinners/no history of liver disorder
- Patient remain on protonix drip
- Got total of 3 unit prbc this admit.
- EGD showing duodenal ulcer with bleeding vessel which was cauterized, also have grade C esophagitis
- Diet being advanced slowly by GI.
- GI consulted for further evaluation
2. Hypovolemic shock - resolved
- Patient got 30 mL KG fluid bolus still remained hypotensive and required to be started on Levophed overnight
- weaned off of vasopressors
3. ESBL Ecoli bacteremia
- had significant leukocytosis, trending down.
- one set blood cs reported ESBL ecoli by [employer] method, await final suceptibility report
- source of bacteremia unclear but possible GI with PUD
- started on ertapenem 1g/d yesterday
- will involved ID for further evaluation
4. Fungal skin infection
Suspected superimposed bacterial Cellulitis
- Involving left groin and lower abdomen/groin
- Skin quite erythematous and tender in left axilla
5. Attention deficit disorder
- Continue home dose of Adderall 20 mg 3 times daily
6. alcohol use disorder
- Patient had stopped drinking approximately 2 weeks back
- Continuation of alcohol abstinence will be recommended moving forward
7. Syncope episode
- Reported syncopized at home when was on commode
- repeat episode in the night today. brief and patient was sitting in bed.
- Likely combination of vasovagal due to volume depletion/blood loss and hypotension related
- added small dose midodrine for BP control
history of right BKA
wheelchair-bound
essential hypertension - hold bP medication
hyperlipidemia
DVTPPX - SCD
Full code
Anticipated Discharge: > 48 hours
Subjective/Interval History
-
Date of Service: March 11, 2025
some reported black stool, no fresh blood
had an episode of brief syncope last night
no abd pain/nausea/vomiting
Objective Data
-
Labs:
Laboratory Results
03/10/25 03/11/25 03/11/25
23:55 04:53 11:46
WBC 16.2 H 12.6 H
Hgb 8.3 L 8.7 L
Hct 25.0 L 26.3 L
Plt Count 194 198
Sodium 123 L Pending
Potassium 4.2 Pending
Chloride 100 Pending
Carbon Dioxide 24 Pending
BUN 13 Pending
Creatinine 1.1 Pending
Glucose 91 Pending
Calcium 7.9 L Pending
03/11/25 03/11/25
16:00 20:00
WBC
Hgb
Hct
Plt Count
Sodium Pending Pending
Potassium Pending Pending
Chloride Pending Pending
Carbon Dioxide Pending Pending
BUN Pending Pending
Creatinine Pending Pending
Glucose Pending Pending
Calcium Pending Pending
Vital Signs:
Vital Signs
Temp Pulse Resp BP Pulse Ox
97.6 F 68 25 103/56 97
03/11/25 07:15 03/11/25 10:00 03/11/25 10:00 03/11/25 09:20 03/11/25 09:19
I&O
03/10/25 03/11/25 03/12/25
06:59 06:59 06:59
Intake Total 3750 / 3750 5429 / 5429 780 / 780
Output Total 1100 / 1100 4405 / 4405 1300 / 1300
Balance 2650 / 2650 1024 / 1024 -520 / -520
Review of Systems
-
Respiratory: Reports No Symptoms
Cardiac: Reports No Symptoms
Abdomen/GI: Reports Black Stools
Physical Exam
-
General: Morbidly Obese
HEENT: Negative Oxygen
Respiratory: Clear to Auscultation
Cardiac: Regular Rhythm and S1/S2; Negative Murmur
GI: Soft, Nontender and Nondistended
Musculoskeletal: Other (Right BKA)
Skin: Other (Left axilla and groin rash)
Neuro: Awake, Alert and Oriented
[2025-03-11 12:25] LABS: Blood Urea Nitrogen 11 mg/dl (9-20); Calcium 7.8 mg/dl (8.4-10.2); Carbon Dioxide 23 mmol/L (22-30); Chloride 99 mmol/L (98-107); Estimated Creatinine Clearance 99 ml/min; Glucose 87 mg/dl (70-99); Potassium 4.0 mmol/L (3.5-5.1); Sodium 123 mmol/L (135-145); eGFR > 60.00
--- NOTE | 2025-03-11 12:39 | PTCARENOTE ---
Updated assessment unchanged thru shift. VS trends ongoing. Protonix drip to continues as per GI team. Advance diet to low res as ordered and tolerated. Updates with hospitalist team at bedside. Follow up nephrology consult at bedside, stat labs
collected and pending. Update with fourth floor nursing team for ongoing cares. Continue to follow and update.
[2025-03-11] MEDS: SAMSCA 7.5 MG PO (14:28)
[2025-03-11 17:21] LABS: Blood Urea Nitrogen 11 mg/dl (9-20); Calcium 8.0 mg/dl (8.4-10.2); Carbon Dioxide 24 mmol/L (22-30); Chloride 101 mmol/L (98-107); Estimated Creatinine Clearance 99 ml/min; Glucose 113 mg/dl (70-99); Potassium 4.0 mmol/L (3.5-5.1); Sodium 127 mmol/L (135-145); eGFR > 60.00
[2025-03-11] MEDS: INVANZ 60 MG IV (18:24)
[2025-03-11 23:21] LABS: Blood Urea Nitrogen 10 mg/dl (9-20); Calcium 8.1 mg/dl (8.4-10.2); Carbon Dioxide 24 mmol/L (22-30); Chloride 101 mmol/L (98-107); Estimated Creatinine Clearance 110 ml/min; Glucose 98 mg/dl (70-99); Potassium 4.6 mmol/L (3.5-5.1); Sodium 125 mmol/L (135-145); eGFR > 60.00
[2025-03-12 03:34] VITALS: BP 157/67
[2025-03-12] MEDS: PROTONIX 100 IV ×3 (03:45→23:23)
[2025-03-12] MEDS: CARAFATE SUSPENSION 1 GM PO ×4 (08:03→21:24)
[2025-03-12] MEDS: DESENEX/MITRAZOL/ZEASORB 1 APPLIC TOPICAL ×2 (08:04→19:15)
[2025-03-12 08:12] VITALS: BP 125/65
[2025-03-12 08:24] LABS: Blood Urea Nitrogen 8 mg/dl (9-20); Calcium 8.0 mg/dl (8.4-10.2); Carbon Dioxide 24 mmol/L (22-30); Chloride 100 mmol/L (98-107); Estimated Creatinine Clearance 99 ml/min; Glucose 99 mg/dl (70-99); Potassium 3.9 mmol/L (3.5-5.1); Sodium 126 mmol/L (135-145); eGFR > 60.00
[2025-03-12 08:41] LABS: Hematocrit 24.2 % (39.0-52.0); Hemoglobin 8.0 g/dL (13.0-18.0); Mean Corp Hgb Conc. 33.1 g/dL (33.0-37.0); Mean Corpuscular Volume 88.3 fL (80.0-94.0); Platelet Count 243 10^3/uL (130-400); Red Cell Dist. Width 14.6 % (11.5-14.5)
--- NOTE | 2025-03-12 09:09 | CON.ID ---
Consultation
-
Date/Time Consultation Requested: March 11, 2025 1637
Date/Time Consultation Performed: March 12, 2025 0910
Requesting Provider: Dr. Gopal Costa
Performing Provider: Dr. Svetlana Khan
Reason for Consultation: ESBL E. coli bacteremia
Chief Complaint / Past History
Chief Complaint
Black stools
History of Present Illness
64-year-old male with history of alcohol abuse, neuropathy, chronic pain, who presented to the ED on March 09 due to weakness and rectal bleeding. Patient reports he has been having black tarry watery stools for the past month. He has been feet
getting weaker. Positive nausea. He also had episodes of blacking out for few minutes and falling, not aware of what happened. Had chills. No abdominal pain. No dysuria, urgency, or frequency. Complaint of dizziness. In the hospital white
count 24.6, spiked temperature 103.3, hypotensive. Patient with multiple bloody bowel movements. March 10 he underwent small bowel endoscopy and found to have bleeding duodenal ulcer status post cauterization. Patient initially was on
cefazolin. Admission blood culture 1 out of 2 sets positive for ESBL E. coli. Urine culture also positive ESBL E. coli. He is currently on ertapenem started March 10. Today patient reports no further bloody stool. He complains of persistent
episodes of blacking out for about 5 minutes. He states his sister witnessed it here. He complains of headache, dry cough, chronic pain.
Past History
Additional Past Medical History:
Hypertension
Dyslipidemia
Alcohol abuse
ADD
Gout
Neuropathy
Chronic pain
Osteoporosis
History of right BKA, wheelchair bound
L TKR
Allergy History:
No Known Allergies Allergy (Unverified 10/12/21 10:21)
Medications Reviewed: Yes
Current Antibiotics:
Ertapenem day 3
Social History
Tobacco: Smoker
Alcohol: Chronic Alcoholic
Drug: None
Living: With Family (Sister)
Family History
Family History: Not Pertinent
Review of Systems
Review of Systems
General: Negative Change in Appetite
HEENT: Headache; Negative Pharyngitis
Cardiovascular: Negative Chest Pain
Respiratory: Cough; Negative Sputum Production
Genital / Urological: Negative Dysuria or Flank Pain
Endocrine: Weakness
All systems: All other systems were reviewed and were negative
Vital Signs
Temp Pulse Resp BP Pulse Ox
99.0 F 73 17 125/65 96
03/12/25 08:12 03/12/25 08:12 03/12/25 08:12 03/12/25 08:12 03/12/25 08:12
Physical Exam
Physical Exam
Constitutional: No Acute Distress, Comfortable, Non-toxic and Obese
Head: Other (No frontal or maxillary sinus tenderness)
Eyes: No Conjunctival Hemorrhage and Sclera Anicteric
Cardiovascular: Regular Rate and S1/S2
Pulmonary: Clear
Gastrointestinal: Soft, Non Tender, Non Distended and Normal Bowel Sounds
Genito-Urinary: Negative CVA Tenderness
Extremities: Negative Edema
Skin: Other (Contusion over left kaba)
Neurological: AO x 3
Lab / Diagnostic Study Results
03/12/25 07:11
03/12/25 07:11
Abs Immat Gran (auto) 0.2 10^3/uL (0-0.05) H 03/09/25 15:35
Absolute Neuts (auto) 22.4 10^3/uL (1.4-6.5) H 03/09/25 15:35
Absolute Lymphs (auto) 0.7 10^3/uL (1.2-3.4) L 03/09/25 15:35
Absolute Monos (auto) 1.2 10^3/uL (0.1-0.6) H 03/09/25 15:35
Absolute Basos (auto) 0.1 10^3/uL (0-0.2) 03/09/25 15:35
Immature Gran % 1.0 % (0-0.5) H 03/09/25 15:35
Neutrophils % 91.1 % (42.2-75.2) H 03/09/25 15:35
Lymphocytes % 2.8 % (20.5-51.1) L 03/09/25 15:35
Monocytes % 4.8 % (1.7-9.3) 03/09/25 15:35
Eosinophils % 0.0 % (0-6) 03/09/25 15:35
Basophils % 0.3 % (0-2) 03/09/25 15:35
PT 13.9 Sec (11.4-14.6) 03/09/25 15:53
INR 1.04 03/09/25 15:53
Lactic Acid Cancelled 03/09/25 20:00
Ur Squamous Epith Cells 0-2 /LPF (Few) 03/10/25 00:09
Microbiology Results
Micro:
03/10/25 00:09 Urine Culture - Final
Urine Escherichia coli - ESBL
03/09/25 17:04 Blood Culture - Preliminary
Blood/Venous Escherichia coli - ESBL
Gram Stain - Preliminary
03/09/25 17:11 Blood Culture - Preliminary
Blood/Venous No Growth in 48 hours- Final report to follow
03/11/25 16:53 Blood Culture - Pending
Blood/Venous
None
Assessment / Plan
# ESBL-Ecoli bacteremia
. Source likely from gut translocation over UTI as UA without significant pyuria
# Upper GIB from duodenal ulcer s/p cauterization 03/10
# Leukocytosis persists adn stable
# Alcohol abuse
# Syncopal episodes
- DC ertapenem - drug not as effective in setting of hypoalbuminemia as in this patient.
- Start meropenem 500mg IV q6H.
- Trend wbc
- When close to dc, can potentially transition to Bactrim DS 1 tab bid through 03/21.
- Continue contact isolation.
#Conditions present on admission:
Hypertension
Dyslipidemia
Alcohol abuse
ADD
Gout
Neuropathy
Chronic pain
Osteoporosis
History of right BKA, wheelchair bound
L TKR
Care Review
Plan reviewed with: Physician (Dr. Frankie Reynaga)
[2025-03-12 11:21] VITALS: BP 137/63
[2025-03-12] MEDS: MERREM 500 MG IV ×3 (11:27→23:23)
[2025-03-12] MEDS: STERILE WATER FOR INJECTION 10 ML IV ×3 (11:27→23:23)
--- NOTE | 2025-03-12 11:34 | CM ---
Patient seen at bedside on . Patient states he has a concern about his medical status and requested nursing to speak with him. Patient stated he had 'passed out' and did not know where he was but is feeling back to himself now. CM updated
nursing. CM will continue to follow for discharge planning needs.
Plan; for home with PT vs home with no needs;pending medical treatment plan and functional status
--- NOTE | 2025-03-12 11:43 | W.PN.HOSP.TC ---
Today's Communication/Plan
-
PPI drip to stop in AM; then transition to PO BID 40mg
Echo and EEG to complete syncope/blackout episodes work-up; tele without arrhythmia.
Abx per ID
Hyponatremia management per Nephrology; continue OFR
Assessment / Plan
Assessment / Plan
Assessment:
1. Upper gi bleed from Duodenal ulcer
Esophagitis
Acute blood loss anemia
- Baseline hemoglobin of 14 in October 19. This admit hemoglobin of 8.1
- Reported melena ongoing for few days, noted to having bright red blood in the stool today as well per family
- Denies of any previous history of peptic ulcer disease/not on blood thinners/no history of liver disorder
- continue PPI Drip for 24 hours further; then PPI BID x 12 weeks
- Carafate x 2 weeks
- Got total of 3 unit prbcs this admit.
- EGD showing duodenal ulcer with bleeding vessel which was cauterized, also have grade C esophagitis
- Low res diet
- GI Signed off. repeat EGD in 3 months to assess healing
2. Hypovolemic shock - resolved
- Patient got 30 mL KG fluid bolus still remained hypotensive and required to be started on Levophed briefly
- weaned off of vasopressors
3. ESBL E.coli bacteremia from E. Coli ESBL UTI
- had significant leukocytosis - continue to monitor
- ID following; transitioned to Meropenem
- follow repeat cultures
4. Fungal skin infection
Suspected superimposed bacterial Cellulitis
- Involving left groin and lower abdomen/groin
- Skin quite erythematous and tender in left axilla
5. Attention deficit disorder
- Continue home dose of Adderall 20 mg 3 times daily
6. alcohol use disorder
- Patient had stopped drinking approximately 2 weeks back
- Continuation of alcohol abstinence will be recommended moving forward
7. Syncope episode
- Reported syncope at home when was on commode
- repeat episode in the night today. brief and patient was sitting in bed.
- Likely combination of vasovagal due to volume depletion/blood loss and hypotension related
- continue small dose midodrine for BP control
- for completeness will check Echo and EEG
8. Hyponatremia, hypotension related ADH increase and excess free water intake
- continue OFR
- monitor BMP
- may need 3% saline or Samsca
- Nephrology following
history of right BKA
wheelchair-bound
essential hypertension - hold Lisinopril
hyperlipidemia - hold statin
DVT ppx: SCDs
Code: Full
Anticipated Discharge: 24 - 48 hours
Subjective/Interval History
-
Date of Service: March 12, 2025
patient reported to ID that he suffered blackout episodes (~5 mins episodes) for past few months
denies any cp or sob or palpitations
Objective Data
-
Labs:
Laboratory Results
03/12/25
07:11
WBC 19.0 H
Hgb 8.0 L
Hct 24.2 L
Plt Count 243 D
Sodium 126 L
Potassium 3.9
Chloride 100
Carbon Dioxide 24
BUN 8 L
Creatinine 1.0
Glucose 99
Calcium 8.0 L
Vital Signs:
Vital Signs
Temp Pulse Resp BP Pulse Ox
98.4 F 65 17 137/63 97
03/12/25 11:21 03/12/25 11:21 03/12/25 11:21 03/12/25 11:21 03/12/25 11:21
I&O
03/11/25 03/12/25 03/13/25
06:59 06:59 06:59
Intake Total 5429 / 5429 1979 / 1979
Output Total 4405 / 4405 5900 / 5900
Balance 1024 / 1024 -3920 / -3920
Physical Exam
-
General: No Apparent Distress
HEENT: Normocephalic and Atraumatic
Respiratory: Negative Wheezes
Cardiac: Regular Rhythm and S1/S2
GI: Soft and Nontender
Genito-urinary: No Costovertebral Tender
Neuro: AO x 3
Hematologic / Lymphatic: No Lymphadenopathy
Psych: Calm
Data Reviewed
-
Total Time Spent with Patient (in minutes): 45
Labs: Labs Reviewed by me
--- NOTE | 2025-03-12 13:47 | W.PN.NEPH.PH ---
Today's Communication / Plan
-
Samsca 15 mg
Assessment/Plan
-
64-year-old male with past medical history of attention deficit disorder, history of right BKA, alcohol use disorder, wheelchair-bound, essential hypertension, hyperlipidemia was brought in by family member after patient was noted to having
increased generalized weakness and ongoing melena for few days. Also had a syncopal event. Presented hypotensive requiring pressors status post GI workup on PPI. EGD showed duodenal ulcers which were cauterized.
Renal consultation for hyponatremia down to 123. Drinking significant amount of water and is on normal saline
Impression
Hyponatremia secondary increased ADH low blood pressures superimposed with excessive water intake
Anemia status post GI bleed status post cauterization and hypovolemic shock brief pressors. Support
Hypotension
E. coli bacteremia
Plan
Fluid restriction discussed with the patient in detail drinking 1 start 1 cup of water per hour
A.m. lab
Antibiotics per ID lead
Agree with midodrine may need to increase the dose
Status post tolvaptan normal improvement will give another dose today 15 mg
-
-
Date of Service: March 12, 2025
CC / HPI / ROS
-
Chief Complaint:
Weakness hypotension
History of Present Illness:
Weakness hypotension and hyponatremia alcohol history GI bleed
Review of Systems:
No chest pain or shortness of breath
Labs
-
Labs:
WBC 19.0 10^3/uL (4.8-10.8) H 03/12/25 07:11
RBC 2.74 10^6/uL (4.70-6.10) L 03/12/25 07:11
Hgb 8.0 g/dL (13.0-18.0) L 03/12/25 07:11
Hct 24.2 % (39.0-52.0) L 03/12/25 07:11
Plt Count 243 10^3/uL (130-400) D 03/12/25 07:11
Sodium 126 mmol/L (135-145) L 03/12/25 07:11
Potassium 3.9 mmol/L (3.5-5.1) 03/12/25 07:11
Chloride 100 mmol/L (98-107) 03/12/25 07:11
Carbon Dioxide 24 mmol/L (22-30) 03/12/25 07:11
BUN 8 mg/dl (9-20) L 03/12/25 07:11
Creatinine 1.0 mg/dL (0.7-1.3) 03/12/25 07:11
eGFR > 60.00 03/12/25 07:11
Glucose 99 mg/dl (70-99) 03/12/25 07:11
Calcium 8.0 mg/dl (8.4-10.2) L 03/12/25 07:11
Albumin 3.1 g/dl (3.5-5.0) L 03/09/25 15:35
Physical Exam
-
Vital Signs:
Vital Signs
Temp Pulse Resp BP Pulse Ox
98.4 F 65 17 137/63 97
03/12/25 11:21 03/12/25 11:21 03/12/25 11:21 03/12/25 11:21 03/12/25 11:21
Respiratory:: Bilateral: CTA
Lung Excursion:: Normal
Abdomen:: Soft
Bowel Sounds:: Normal
Extremity Edema:: None: Bilateral:
[2025-03-12] MEDS: RITALIN 20 MG PO ×2 (14:14→17:12)
[2025-03-12] MEDS: SAMSCA 15 MG PO (14:17)
[2025-03-12 15:39] VITALS: BP 118/75
--- NOTE | 2025-03-12 16:37 | PN.CDI ---
CDI
- -
CDI:
Physician Documentation Request
Admit Date: 03/09/25 17:42
Dear Doctor,
Please review the following and provide your response in the progress notes.
Clinical Indicators:
Pt admitted with Pt admitted with GI bleed/ABLA found to have acute bleeding duodenal ulcer
Nephrology note 03/12 , ' Hyponatremia secondary increased ADH low blood pressures superimposed with excessive water intake...Status post tolvaptan normal improvement will give another dose today 15 mg...'
Urine studies below
Laboratory Tests
03/10/25
00:09
Urine Osmolality 387
Urine Sodium 33
Based on the above, could you clarify in the progress notes, the appropriate diagnosis, if significant, that supports the above abnormalities and additional evaluation, monitoring and/or treatment rendered:
SIADH
Hyponatremia only
Other ( please specify)
Use of terms such as suspected, likely, concern for, or probable (associated with a specific diagnosis that is being evaluated, monitored, or treated as if it exists) are acceptable and can be coded in the inpatient setting, when documented at the
time of discharge.
Thank you,
Maggy Santana RN
CDI Specialist
[facility] [facility]
Please use your independent medical judgment in providing your response.
--- NOTE | 2025-03-12 17:23 | WOUNDNOTE ---
LEFT HEEL STAGE 1
--- NOTE | 2025-03-12 17:23 | WOUNDNOTE ---
LEFT HEEL STAGE 1
--- NOTE | 2025-03-12 17:24 | WOUNDNOTE ---
RIGHT ELBOW, Blanchable Red
--- NOTE | 2025-03-12 17:26 | WOUNDNOTE ---
WO RN NOTE: Patient visited when stage 1 PI to left heel and right elbow were noted during Prevalence study. Upon assessment the right elbow is blanchable. The left heel was confirmed to be a stage 1 PI. Wound care provided as ordered and heel
off-loaded with pillow under calf. Instructed patient to keep heel off-loaded when in bed. He verbalized understanding. KARIS Kumar given update.
--- NOTE | 2025-03-12 18:36 | EEG.RPT ---
Electroencephalogram Report
Recording
Date of EE03/12/25
Type of EEG: Routine
Length of EEG recordin minutes
Done with Video Recording: Yes
Patient Status: Inpatient
Recording Conditions: Awake and Drowsy
Hyperventilation Performed: No
Photic Stimulation Performed: Yes
Report
Methods:
A 21 channel, routine, EEG was performed. The 10-20 International system of electrode placement was used. ECG was monitored. Video was recorded.
EEG Interpretation:
The posterior dominant rhythm reaches up to 10 Hz.
The background rhythm did not show any asymmetry of amplitude or frequency between the hemispheres.
Drowsiness was seen that showed slowing of the background rhythm.
Hyperventilation was not performed.
Photic stimulation did not show any abnormal change.
No epileptiform activity was seen.
Clinical correlation:
This is a normal, routine, awake and drowsy state EEG. A normal EEG does not rule out the possibility of a seizure. Clinical correlation is recommended.
[2025-03-12 20:28] VITALS: BP 125/76
[2025-03-12 23:08] VITALS: BP 134/76
[2025-03-13] MEDS: MERREM 500 MG IV ×4 (05:11→23:09)
[2025-03-13] MEDS: STERILE WATER FOR INJECTION 10 ML IV ×4 (05:11→23:10)
[2025-03-13 07:05] LABS: Hematocrit 24.8 % (39.0-52.0); Hemoglobin 8.3 g/dL (13.0-18.0); Mean Corp Hgb Conc. 33.5 g/dL (33.0-37.0); Mean Corpuscular Volume 89.5 fL (80.0-94.0); Platelet Count 280 10^3/uL (130-400); Red Cell Dist. Width 14.6 % (11.5-14.5)
[2025-03-13 07:18] LABS: Blood Urea Nitrogen 7 mg/dl (9-20); Calcium 8.1 mg/dl (8.4-10.2); Carbon Dioxide 28 mmol/L (22-30); Chloride 101 mmol/L (98-107); Estimated Creatinine Clearance 110 ml/min; Glucose 105 mg/dl (70-99); Potassium 4.2 mmol/L (3.5-5.1); Sodium 129 mmol/L (135-145); eGFR > 60.00
[2025-03-13 07:46] VITALS: BP 131/64
[2025-03-13] MEDS: CARAFATE SUSPENSION 1 GM PO ×4 (08:39→20:18)
[2025-03-13] MEDS: PROTONIX 40 MG PO ×2 (08:39→20:18)
[2025-03-13] MEDS: RITALIN 20 MG PO ×3 (08:39→16:42)
[2025-03-13] MEDS: DESENEX/MITRAZOL/ZEASORB 1 APPLIC TOPICAL ×2 (08:39→20:19)
--- NOTE | 2025-03-13 13:32 | W.PN.ID1 ---
Date of Service
Date of Service: March 13, 2025
Today's Communication
Continue meropenem.
Assessment / Plan
# ESBL-Ecoli bacteremia
. Source likely from gut translocation over UTI as UA without significant pyuria
# Upper GIB from duodenal ulcer; s/p cauterization 03/10
# Leukocytosis persists adn stable
# Alcohol abuse
# Syncopal episodes
- Continue meropenem 500mg IV q6H.
- ertapenem not as effective in setting of hypoalbuminemia
- Trend wbc
- When close to d/c, can potentially transition to Bactrim DS 1 tab bid through 03/21.
- Continue contact isolation.
#Conditions present on admission:
Hypertension
Dyslipidemia
Alcohol abuse
ADD
Gout
Neuropathy
Chronic pain
Osteoporosis
History of right BKA, wheelchair bound
L TKR
Chief Complaint
-: Bacteremia
Subjective / Review of Systems
Review of Systems: No Fever, No Chills and No Chest Pain
Vital Signs / Physical Exam
Vital Signs
Vital Signs
Temp Pulse Resp BP Pulse Ox
98.7 F 82 18 131/64 99
03/13/25 07:46 03/13/25 07:46 03/13/25 07:46 03/13/25 07:46 03/13/25 07:46
Physical Exam
Constitutional: No Acute Distress, Comfortable and Non-toxic
Cardiovascular: S1/S2; Negative S3/S4
Pulmonary: Clear; Negative Wheezes or Rales
Gastrointestinal: Soft, Non Tender and Non Distended
Extremities: Negative Cyanosis or Erythema
Musculoskeletal: Other (Right BKA)
Neurological: Awake and Alert
Psychological: Calm
Objective Data
Lab Data
Lab Results
03/13/25 06:07
03/13/25 06:06
PT 13.9 Sec (11.4-14.6) 03/09/25 15:53
INR 1.04 03/09/25 15:53
Estimated Creat Clear 110 ml/min 03/13/25 06:06
Lactic Acid Cancelled 03/09/25 20:00
Total Bilirubin 0.4 mg/dl (0.2-1.3) 03/09/25 15:35
AST 20 U/L (17-59) 03/09/25 15:35
ALT 18 U/L (0-50) 03/09/25 15:35
Alkaline Phosphatase 44 U/L (38-126) 03/09/25 15:35
Most recent labs reviewed.
Micro Results:
03/09/25 17:11 Blood Culture - Preliminary
Blood/Venous No Growth in 72 hours- Final report to follow
03/11/25 16:53 Blood Culture - Preliminary
Blood/Venous No Growth in 24 hours- Final report to follow
03/10/25 00:09 Urine Culture - Final
Urine Escherichia coli - ESBL
03/09/25 17:04 Blood Culture - Preliminary
Blood/Venous Escherichia coli - ESBL
Gram Stain - Preliminary
None
--- NOTE | 2025-03-13 13:44 | W.PN.HOSP.TC ---
Today's Communication/Plan
-
see note
Assessment / Plan
Assessment / Plan
1. Upper GI bleed from Duodenal ulcer
Esophagitis
Acute blood loss anemia
- Baseline hemoglobin of 14 in October 19. This admit hemoglobin of 8.1
- Reported melena ongoing for few days, noted to having bright red blood in the stool today as well per family
- Denies of any previous history of peptic ulcer disease/not on blood thinners/no history of liver disorder
- Got total of 3 unit PRBCs this admit.
- EGD showing duodenal ulcer with bleeding vessel which was cauterized, also have grade C esophagitis
- Low res diet
- GI Signed off. repeat EGD in 3 months to assess healing
2. Hypovolemic shock - resolved
- Patient got 30 mL KG fluid bolus still remained hypotensive and required to be started on Levophed briefly
- weaned off of vasopressors
3. ESBL E.coli bacteremia from E. Coli ESBL UTI
- had significant leukocytosis - continue to monitor
- ID following; transitioned to Meropenem. At discharge patient recommended to be maintained on Bactrim till 03/21
- Repeat blood culture remains neg.
4. Fungal skin infection - improved
Suspected superimposed bacterial Cellulitis - resolved
- Involving left groin and lower abdomen/groin
- Skin quite erythematous and tender in left axilla
5. Attention deficit disorder
- Continue home dose of Adderall 20 mg 3 times daily
6. alcohol use disorder
- Patient had stopped drinking approximately 2 weeks back
- Continuation of alcohol abstinence will be recommended moving forward
7. Syncope episode
- Reported syncope at home when was on commode. repeat periodic episodes in the hospital.
- Likely combination of vasovagal due to volume depletion/blood loss and hypotension related
- continue small dose midodrine for BP control
- TTE report reviewed and preserved ejection fraction, no valvular issues,. EEG pending.
- check ortho vitals lying and sitting.
8. Hyponatremia, hypotension related ADH increase and excess free water intake
- maintain fluid restriction
- Samsca dose x2 provided by nephrology
history of right BKA
wheelchair-bound
essential hypertension - hold Lisinopril
hyperlipidemia - hold statin
DVT ppx: SCDs
Code: Full
Anticipated Discharge: 24 - 48 hours
Subjective/Interval History
-
Date of Service: March 13, 2025
Denies having any abdominal pain/nausea/vomiting
No reported black or blood in stool
Objective Data
-
Labs:
Laboratory Results
03/13/25 03/13/25
06:06 06:07
WBC 14.4 H
Hgb 8.3 L
Hct 24.8 L
Plt Count 280
Sodium 129 L
Potassium 4.2
Chloride 101
Carbon Dioxide 28
BUN 7 L
Creatinine 0.9
Glucose 105 H
Calcium 8.1 L
Vital Signs:
Vital Signs
Temp Pulse Resp BP Pulse Ox
98.7 F 82 18 131/64 99
03/13/25 07:46 03/13/25 07:46 03/13/25 07:46 03/13/25 07:46 03/13/25 07:46
I&O
03/12/25 03/13/25 03/14/25
06:59 06:59 06:59
Intake Total 1979 / 1979 1200 / 1200
Output Total 5900 / 5900 4150 / 4150
Balance -3920 / -3920 -2950 / -2950
Review of Systems
-
Respiratory: Reports No Symptoms
Cardiac: Reports No Symptoms
Abdomen/GI: Reports No Symptoms
Physical Exam
-
General: No Apparent Distress and Obese
Musculoskeletal: Other (right BKA)
Neuro: Awake, Alert, Oriented and AO x 3
Psych: Calm
[2025-03-13 14:20] VITALS: BP 125/61; BP 136/79; PULSE 89; O2SAT 98
--- NOTE | 2025-03-13 14:56 | CM ---
CM reviewed chart, reviewed with Hospitalist.
PT/OT ordered, will follow for therapy recommendations.
ID following, patient currently on IV antibiotics.
CM will continue to follow for all d/c planning needs.
Plan; home pending PT/OT evals
[2025-03-13 15:03] VITALS: BP 149/72
--- NOTE | 2025-03-13 15:59 | VATNOTE ---
notified of right forearm IV site phlebitis; this VAT RN discontinued IV; red, warm and swollen; area marked as well 12cm high x 9cm wide; pt stated it was 'sore'; pain level 7. Ice applied; PCN made aware.
--- NOTE | 2025-03-13 16:23 | W.PN.NEPH.PH ---
Today's Communication / Plan
-
follow labs with FR
Assessment/Plan
-
64-year-old male with past medical history of attention deficit disorder, history of right BKA, alcohol use disorder, wheelchair-bound, essential hypertension, hyperlipidemia was brought in by family member after patient was noted to having
increased generalized weakness and ongoing melena for few days. Also had a syncopal event. Presented hypotensive requiring pressors status post GI workup on PPI. EGD showed duodenal ulcers which were cauterized.
Renal consultation for hyponatremia down to 123. Drinking significant amount of water and is on normal saline
Impression
Hyponatremia secondary increased ADH low blood pressures superimposed with excessive water intake
Anemia status post GI bleed status post cauterization and hypovolemic shock brief pressors. Support
Hypotension
E. coli bacteremia
Plan
Hypoantremia- possible from polydipsia+high ADH state
Fluid restriction discussed with the patient in detail
sodium better at [address] [facility]
need strict FR and follow labs in am
Bp better now with out midodrine
Antibiotics per ID
d/w pt
-
-
Date of Service: March 13, 2025
CC / HPI / ROS
-
Chief Complaint:
Weakness hypotension
History of Present Illness:
Weakness hypotension and hyponatremia alcohol history GI bleed
sodium better at 129 post [facility] 03/12
bp stable
hb stable at 8.3
WBC betetr at 14k
Review of Systems:
No chest pain or shortness of breath
eating well
Labs
-
Labs:
WBC 14.4 10^3/uL (4.8-10.8) H 03/13/25 06:07
RBC 2.77 10^6/uL (4.70-6.10) L 03/13/25 06:07
Hgb 8.3 g/dL (13.0-18.0) L 03/13/25 06:07
Hct 24.8 % (39.0-52.0) L 03/13/25 06:07
Plt Count 280 10^3/uL (130-400) 03/13/25 06:07
Sodium 129 mmol/L (135-145) L 03/13/25 06:06
Potassium 4.2 mmol/L (3.5-5.1) 03/13/25 06:06
Chloride 101 mmol/L (98-107) 03/13/25 06:06
Carbon Dioxide 28 mmol/L (22-30) 03/13/25 06:06
BUN 7 mg/dl (9-20) L 03/13/25 06:06
Creatinine 0.9 mg/dL (0.7-1.3) 03/13/25 06:06
eGFR > 60.00 03/13/25 06:06
Glucose 105 mg/dl (70-99) H 03/13/25 06:06
Calcium 8.1 mg/dl (8.4-10.2) L 03/13/25 06:06
Albumin 3.1 g/dl (3.5-5.0) L 03/09/25 15:35
Physical Exam
-
Vital Signs:
Vital Signs
Temp Pulse Resp BP Pulse Ox
100.0 F 74 16 149/72 94
03/13/25 15:03 03/13/25 15:03 03/13/25 15:03 03/13/25 15:03 03/13/25 15:03
Cardiovascular:: Regular rate and rhythm
Respiratory:: Bilateral: CTA
Lung Excursion:: Normal
Abdomen:: Nontender and Soft
Bowel Sounds:: Normal
Extremity Edema:: None: Bilateral:
Izaguirre Catheter: No
--- NOTE | 2025-03-13 17:02 | PN.CDI ---
CDI
- -
CDI:
Physician Documentation Request
Admit Date: 03/09/25 17:42
Dear Doctor Igor,
Please review the following and provide your response in the progress notes.
Clinical Indicators:
Pt admitted with Pt admitted with GI bleed/ABLA found to have acute bleeding duodenal ulcer
Pt has a HX of right BKA and is wheelchair bound
WOUND care note 03/12, ' : Patient visited when stage 1 PI to left heel and right elbow were noted during Prevalence study. Upon assessment the right elbow is blanchable. The left heel was confirmed to be a stage 1 PI. Wound care provided as
ordered and heel off-loaded with pillow under calf. ...'
Physician documentation of the type and location of wounds is required for compliant documentation. Based on the above clinical findings and your assessment, please provide the following in your progress note:
1. Location of the ulcer/wound, including laterality.
2. Type (etiology) of ulcer/wound:
- Pressure (decubitus) ulcer
- Non-pressure ulcer
- Other ( please specify)
Use of terms such as suspected, likely, concern for, or probable (associated with a specific diagnosis that is being evaluated, monitored, or treated as if it exists) are acceptable and can be coded in the inpatient setting, when documented at the
time of discharge.
Thank you,
Maggy Santana RN
CDI Specialist
[place] [employer]
Please use your independent medical judgment in providing your response.
*Source: National Pressure Ulcer Advisory Panel (NPUAP)
--- NOTE | 2025-03-13 18:18 | PTCARENOTE ---
Pt alarm going off for high heart rate. Pt appears to be going in and out of afib. EKG done showing Afib w/ RVR - rate 150s. Pt asymptomatic. Hospitalist made aware via TT.
[2025-03-13] MEDS: TYLENOL 650 MG PO (18:32)
--- NOTE | 2025-03-13 18:55 | W.PN.UPDATE ---
Update Note
Progress Note Update
Addendum
Called as patient is having fever with high heart rate on telemetry. EKG consistent with atrial fibrillation. No history of A-fib per chart review. Discussed with nursing staff. Patient is not having chest pain and asymptomatic. He is on
telemetry. Will give as needed metoprolol PRN but first, will give Tylenol. Patient is here for GI bleeding, acute blood loss anemia status post 3 units of blood transfusion during this admission. Currently not a candidate for systemic
anticoagulation. Will discuss with Dr. Costa.
End
[2025-03-13 19:05] VITALS: BP 131/59
[2025-03-13 23:48] VITALS: BP 107/51
[2025-03-14] VITALS (7 sets, daily range): BP systolic 105–133; BP diastolic 57–69; PULSE 81
[2025-03-14] MEDS: MERREM 500 MG IV ×3 (05:48→16:54)
[2025-03-14] MEDS: STERILE WATER FOR INJECTION 10 ML IV ×3 (05:49→16:53)
--- NOTE | 2025-03-14 08:23 | CON.CAR ---
Addendum entered and electronically signed by Art Martinez MD 03/16/25 09:03:
Reviewed patient's ECG and telemetry with EP. Patient does NOT have atrial fibrillation. Arrhythmia is sinus with paroxysmal SVT. See today's progress note.
Addendum entered and electronically signed by Art Martinez MD 03/14/25 15:59:
I reviewed and agree with the note by CAPABILITY LEAD and it accurately reflects our care.
I saw and evaluated the patient, and I provided the substantive portion of the medical decision making. My assessment and plan is below:
64-year-old man with hypertension, hyperlipidemia, PAD with right BKA, and history of alcohol abuse who presents with weakness and melena found to have anemia requiring 3 units PRBCs due to a bleeding duodenal ulcer which was cauterized by GI.
Course also complicated by ESBL E. coli bacteremia and UTI. Cardiology is consulted for paroxysmal atrial fibrillation which is new for patient. He reports intermittent palpitations at home but has not had any here in the hospital. I extensively
reviewed his telemetry and twelve-lead ECG. I think he is having short paroxysms of atrial fibrillation but it is somewhat atypical as he has sinus beats and very close proximity to the A-fib. Differential diagnosis also includes SVT and
multifocal atrial tachycardia. He denies chest pain, shortness of breath, and lower extremity swelling.
Physical exam: Regular rate, irregular rhythm, crackles at bilateral lung bases, R BKA, no LLE edema
TTE 03/12/2025: LVEF 55-60%, mild LVH, no VHD
Paroxysmal atrial fibrillation: Asymptomatic. As above, telemetry/ECG are somewhat atypical for A-fib given sinus beats in close proximity to the arrhythmia. Differential also includes SVT versus multifocal atrial tachycardia. Will have EP see on
Sunday if he is still admitted. Start metoprolol 25 mg daily for rate control. [id number] 3 (age, hypertension, PAD). Would not add anticoagulation right now given recent duodenal ulcer bleed requiring transfusion. Will reassess as outpatient.
If not a candidate for AC, consider watchman.
Original Note:
Consultation
Consultation Request
Date/Time Consultation Requested: 03/14/2025 12:20P
Date/Time Consultation Performed: 03/14/2025 8:15A
Requesting Provider: KATHI Vital
Performing Provider: KATHI Higginbotham for Dr. Martinez
Reason for Consultation: New onset A-fib with RVR
Medical History
-
Chief Complaint: melena
History of Present Illness:
Mr. Sullivan is a 64 yo male with HTN, HLD, PAD with right BKA, wheelchair-bound, ADHD and history of EtOH abuse, who presents to the ER with complaints of weakness and ongoing melena. We are consulted for new onset rapid A-fib noted 03/13/2025 at 6
PM. GI bleed with acute blood loss anemia status post 3 units PRBCs transfusion this admission hemoglobin currently 8.3. [id number] score is at least 3 (HTN, PAD, age), though not a systemic anticoagulation candidate given acute blood loss
anemia/GIB requiring transfusions this admission. He states feeling palpitations/racing heart feeling, which has resolved. He is in normal sinus rhythm with rates in the 90s currently. And he denies any palpitations, or other cardiac symptoms
currently.
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
Past Medical History
Past Medical History: Other (As above)
Past Surgical History: Other (As above)
Social History
Tobacco: Former Smoker
Alcohol: Former
Family History
Family History: Reviewed & Not Pertinent
Allergies / Home Medications
Allergy/AdvReac Type Severity Reaction Status Date / Time
No Known Allergies Allergy Unverified 10/12/21 10:21
�Medication �Instructions �Recorded �Confirmed �Type
acetaminophen 650 mg 650 mg PO BIDPRN PRN mild pain 10/12/21 03/09/25 History
tablet,extended release (Tylenol
Arthritis Pain)
aluminum-mag hydroxide-simethicone 15 ml PO TIDPRN PRN gerd 03/09/25 03/09/25 History
200 mg-200 mg-20 mg/5 mL oral susp
duloxetine 40 mg capsule,delayed 40 mg PO BIDPRN PRN mild pain 03/09/25 03/09/25 History
release
lisinopril 20 mg tablet 20 mg PO DAILY Blood Pressure 03/09/25 03/09/25 History
methylphenidate HCl 20 mg tablet 20 mg PO TID Mental Health/Anxiety 03/09/25 03/09/25 History
rosuvastatin 10 mg tablet (Crestor) 10 mg PO DAILY High Cholesterol 03/09/25 03/09/25 History
Review of Systems
-
History Source: Patient
All other systems: Negative unless noted
Physical Exam
Vital Signs
Temp Pulse Resp BP Pulse Ox
98.2 F 69 16 133/68 98
03/14/25 07:16 03/14/25 07:16 03/14/25 07:16 03/14/25 07:16 03/14/25 07:16
Lab Results
03/13/25 06:07
Troponin I 0.017 ng/ml 03/09/25 15:35
Physical Exam
General: Other (Appears chronically ill)
HEENT: Normocephalic and Moist Mucous Membranes
Respiratory: Clear and Non Labored Respirations
Cardiac: S1/S2 and Regular Rhythm
Breast: Deferred by me
GI: Soft, Non Tender and Normal Bowel Sounds
Rectal: Deferred by Provider
Musculoskeletal: No Clubbing, No Cyanosis and Other (Right BKA)
Skin: Warm and Dry
Neuro: AO x 3
Psych: Calm
Impression / Plan
-
A-fib with RVR - new onset 03/13/2025 at 6 PM.
- Converted to normal sinus rhythm and maintaining sinus rhythm with rates in the 90s.
- Will start Toprol 25mg daily and monitor rates, h/o sinus bradycardia in 50s.
- [id number] score is at least 3 (HTN, PAD, age), though not a systemic anticoagulation candidate given acute blood loss anemia/GIB requiring transfusions this admission.
- Will revisit OAC therapy as an outpatient when anemia stabilizes.
Anemia - acute blood loss requiring 3 units PRBCs this admission.
- Management per hospitalist.
HTN - initially hypotensive and home Lisinopril held.
- monitor and resume Lisinopril if needed.
HLD - stable on Crestor.
PAD - s/p right BKA, wheelchair bound.
ADHD - chronic on meds.
Data Reviewed
-
EKG: Tracing Personally Visualized and interpreted (A-fib with RVR 151 bpm)
Medical Tests (Nuc Med, Echo etc): Report Reviewed by me (Echo 03/12/2025: TDS, EF 55-60%, mild LVH, no significant valve disease.)
Labs: Labs Reviewed by me
Old Records: Reviewed
[2025-03-14 08:28] LABS: Blood Urea Nitrogen 8 mg/dl (9-20); Calcium 8.4 mg/dl (8.4-10.2); Carbon Dioxide 28 mmol/L (22-30); Chloride 100 mmol/L (98-107); Estimated Creatinine Clearance 110 ml/min; Glucose 124 mg/dl (70-99); Potassium 4.0 mmol/L (3.5-5.1); Sodium 133 mmol/L (135-145); eGFR > 60.00
[2025-03-14] MEDS: PROTONIX 40 MG PO ×2 (09:24→21:12)
[2025-03-14] MEDS: TYLENOL 650 MG PO ×3 (09:24→22:12)
[2025-03-14] MEDS: CARAFATE SUSPENSION 1 GM PO ×4 (09:24→21:12)
[2025-03-14] MEDS: RITALIN 20 MG PO ×3 (09:25→16:53)
[2025-03-14] MEDS: DESENEX/MITRAZOL/ZEASORB 1 APPLIC TOPICAL ×2 (09:25→21:11)
--- NOTE | 2025-03-14 09:31 | PTCARENOTE ---
pt aox3, talkative, c/o knee pain, see mar for med administration. says that he has ongoing n/v for a few months, says aware, denies today. 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 pt resting, call park in reach
[2025-03-14 11:09] LABS: Hematocrit 27.0 % (39.0-52.0); Hemoglobin 8.8 g/dL (13.0-18.0); Mean Corp Hgb Conc. 32.6 g/dL (33.0-37.0); Mean Corpuscular Volume 90.9 fL (80.0-94.0); Platelet Count 357 10^3/uL (130-400); Red Cell Dist. Width 14.7 % (11.5-14.5)
--- NOTE | 2025-03-14 11:09 | VATNOTE ---
Erythema to right forearm extends past drawn border from yesterday, warm compress placed.
--- NOTE | 2025-03-14 11:31 | W.PN.ID1 ---
Date of Service
Date of Service: March 14, 2025
Today's Communication
- Continue meropenem 500mg IV q6H.
- ertapenem not as effective in setting of hypoalbuminemia
- Trend wbc
- When close to d/c, can potentially transition to Bactrim DS 1 tab bid through 03/21.
Assessment / Plan
# ESBL-Ecoli bacteremia
. Source likely from gut translocation over UTI as UA without significant pyuria
# Upper GIB from duodenal ulcer; s/p cauterization 03/10
# Leukocytosis persists adn stable
# Alcohol abuse
# Syncopal episodes
- Continue meropenem 500mg IV q6H.
- ertapenem not as effective in setting of hypoalbuminemia
- Trend wbc
- When close to d/c, can potentially transition to Bactrim DS 1 tab bid through 03/21.
- Continue contact isolation.
#Conditions present on admission:
Hypertension
Dyslipidemia
Alcohol abuse
ADD
Gout
Neuropathy
Chronic pain
Osteoporosis
History of right BKA, wheelchair bound
L TKR
Chief Complaint
-: Bacteremia
Subjective / Review of Systems
no johan fevers recorded overnight
bp stable
ongoing chronic nausea and vomiting
Vital Signs / Physical Exam
Vital Signs
Vital Signs
Temp Pulse Resp BP Pulse Ox
98.2 F 69 16 133/68 98
03/14/25 07:16 03/14/25 07:16 03/14/25 07:16 03/14/25 07:16 03/14/25 07:16
Physical Exam
Constitutional: No Acute Distress
Cardiovascular: Regular Rate and S1/S2; Negative Murmur or Rub
Pulmonary: Clear and Symmetric; Negative Wheezes or Rales
Gastrointestinal: Soft, Non Tender, Non Distended and Normal Bowel Sounds
Genito-Urinary: Negative Suprapubic Tenderness
Skin: Warm and Dry; Negative Rash or Jaundice
Objective Data
Lab Data
Lab Results
03/14/25 07:41
03/14/25 07:41
PT 13.9 Sec (11.4-14.6) 03/09/25 15:53
INR 1.04 03/09/25 15:53
Estimated Creat Clear 110 ml/min 03/14/25 07:41
Lactic Acid Cancelled 03/09/25 20:00
Total Bilirubin 0.4 mg/dl (0.2-1.3) 03/09/25 15:35
AST 20 U/L (17-59) 03/09/25 15:35
ALT 18 U/L (0-50) 03/09/25 15:35
Alkaline Phosphatase 44 U/L (38-126) 03/09/25 15:35
Most recent labs reviewed.
Micro Results:
03/09/25 17:11 Blood Culture - Preliminary
Blood/Venous No Growth in 4 days- Final report to follow
03/11/25 16:53 Blood Culture - Preliminary
Blood/Venous No Growth in 48 hours- Final report to follow
03/10/25 00:09 Urine Culture - Final
Urine Escherichia coli - ESBL
03/09/25 17:04 Blood Culture - Preliminary
Blood/Venous Escherichia coli - ESBL
Gram Stain - Preliminary
None
[2025-03-14] MEDS: TOPROL XL 25 MG PO (13:05)
--- NOTE | 2025-03-14 13:39 | W.PN.HOSP.TC ---
Addendum entered and electronically signed by Gopal Costa MD 03/14/25 14:14:
Add on to diagnosis
stage 1 PI to left heel and right elbow - continue wound care
Original Note:
Today's Communication/Plan
-
cardio eval
f/u cbc
monitor on tele
maintain on merrem
d/c home within 24-48rhs
Assessment / Plan
Assessment / Plan
1. Upper GI bleed from Duodenal ulcer
Esophagitis
Acute blood loss anemia
- Baseline hemoglobin of 14 in October 19. This admit hemoglobin of 8.1
- Reported melena ongoing for few days, noted to having bright red blood in the stool today as well per family
- Denies of any previous history of peptic ulcer disease/not on blood thinners/no history of liver disorder
- Got total of 3 unit PRBCs this admit.
- EGD showing duodenal ulcer with bleeding vessel which was cauterized, also have grade C esophagitis
- Low res diet
- GI Signed off. repeat EGD in 3 months to assess healing
2. Hypovolemic shock - resolved
- Patient got 30 mL KG fluid bolus still remained hypotensive and required to be started on Levophed briefly
- weaned off of vasopressors
3. ESBL E.coli bacteremia and UTI
- had significant leukocytosis - continue to monitor
- ID following; transitioned to Meropenem. At discharge patient recommended to be maintained on Bactrim till 03/21
- Repeat blood culture remains neg.
4. Fungal skin infection - improved
Suspected superimposed bacterial Cellulitis - resolved
- Involving left groin and lower abdomen/groin
- Skin quite erythematous and tender in left axilla
5. Attention deficit disorder
- Continue home dose of Adderall 20 mg 3 times daily
6. alcohol use disorder
- Patient had stopped drinking approximately 2 weeks back
- Continuation of alcohol abstinence will be recommended moving forward
7. Syncope episode
- Reported syncope at home when was on commode. repeat periodic episodes in the hospital.
- Likely combination of vasovagal due to volume depletion/blood loss and hypotension related
- continue small dose midodrine for BP control
- TTE report reviewed and preserved ejection fraction, no valvular issues
- Ortho vitals -lying-sitting neg.
8. Acute Hyponatremia - resolved
- hypotension related ADH increase and excess free water intake
- maintain fluid restriction
- Samsca dose x2 provided by nephrology
9. Paroxysmal atrial fibrillation
- new dx
- rate controlled currently on toprol xl
- cards evaluation requested
history of right BKA
wheelchair-bound
essential hypertension
hyperlipidemia
DVT ppx: SCDs
Code: Full
Anticipated Discharge: 24 - 48 hours
Subjective/Interval History
-
Date of Service: March 14, 2025
New onset of A-fib on cloud consultant last evening
Patient denies of having any palpitation/chest pain
Objective Data
-
Labs:
Laboratory Results
03/14/25
07:41
WBC 9.0
Hgb 8.8 L
Hct 27.0 L
Plt Count 357 D
Sodium 133 L
Potassium 4.0
Chloride 100
Carbon Dioxide 28
BUN 8 L
Creatinine 0.9
Glucose 124 H
Calcium 8.4
Vital Signs:
Vital Signs
Temp Pulse Resp BP Pulse Ox
98.1 F 76 18 116/57 97
03/14/25 11:37 03/14/25 11:37 03/14/25 11:37 03/14/25 11:37 03/14/25 11:37
I&O
03/13/25 03/14/25 03/15/25
06:59 06:59 06:59
Intake Total 1200 / 1200 1620 / 1620
Output Total 4150 / 4150 3650 / 3650
Balance -2950 / -2950 -2029 / -2029
Review of Systems
-
Respiratory: Reports No Symptoms
Cardiac: Reports No Symptoms
Abdomen/GI: Reports No Symptoms
Physical Exam
-
General: No Apparent Distress and Obese
Musculoskeletal: Other (right BKA)
Neuro: Awake, Alert, Oriented and AO x 3
Psych: Calm
--- NOTE | 2025-03-14 16:39 | W.PN.NEPH.PH ---
Today's Communication / Plan
-
observe on FR, labs in am
Assessment/Plan
-
64-year-old male with past medical history of attention deficit disorder, history of right BKA, alcohol use disorder, wheelchair-bound, essential hypertension, hyperlipidemia was brought in by family member after patient was noted to having
increased generalized weakness and ongoing melena for few days. Also had a syncopal event. Presented hypotensive requiring pressors status post GI workup on PPI. EGD showed duodenal ulcers which were cauterized.
Renal consultation for hyponatremia down to 123. Drinking significant amount of water and is on normal saline
Impression
Hyponatremia secondary increased ADH low blood pressures superimposed with excessive water intake
Anemia status post GI bleed status post cauterization and hypovolemic shock brief pressors. Support
Hypotension
E. coli bacteremia
Plan
Hypoantremia- possible from polydipsia+high ADH state
Fluid restriction continue
sodium better at 133, last [facility] 03/12
Bp stable on BB
Antibiotics per ID
d/w pt
-
-
Date of Service: March 14, 2025
CC / HPI / ROS
-
Chief Complaint:
Weakness hypotension
History of Present Illness:
Weakness hypotension and hyponatremia alcohol history GI bleed
sodium better at 133 post [facility] 03/12
bp stable
hb stable at 8.8
WBC betetr at 9k
Review of Systems:
No chest pain or shortness of breath
eating well
Labs
-
Labs:
WBC 9.0 10^3/uL (4.8-10.8) 03/14/25 07:41
RBC 2.97 10^6/uL (4.70-6.10) L 03/14/25 07:41
Hgb 8.8 g/dL (13.0-18.0) L 03/14/25 07:41
Hct 27.0 % (39.0-52.0) L 03/14/25 07:41
Plt Count 357 10^3/uL (130-400) D 03/14/25 07:41
Sodium 133 mmol/L (135-145) L 03/14/25 07:41
Potassium 4.0 mmol/L (3.5-5.1) 03/14/25 07:41
Chloride 100 mmol/L (98-107) 03/14/25 07:41
Carbon Dioxide 28 mmol/L (22-30) 03/14/25 07:41
BUN 8 mg/dl (9-20) L 03/14/25 07:41
Creatinine 0.9 mg/dL (0.7-1.3) 03/14/25 07:41
eGFR > 60.00 03/14/25 07:41
Glucose 124 mg/dl (70-99) H 03/14/25 07:41
Calcium 8.4 mg/dl (8.4-10.2) 03/14/25 07:41
Albumin 3.1 g/dl (3.5-5.0) L 03/09/25 15:35
Physical Exam
-
Vital Signs:
Vital Signs
Temp Pulse Resp BP Pulse Ox
97.8 F 68 18 121/63 98
03/14/25 15:59 03/14/25 15:59 03/14/25 15:59 03/14/25 15:59 03/14/25 15:59
Cardiovascular:: Regular rate and rhythm
Respiratory:: Bilateral: CTA
Lung Excursion:: Normal
Abdomen:: Nontender and Soft
Bowel Sounds:: Normal
Extremity Edema:: None: Bilateral:
Izaguirre Catheter: No
[2025-03-15] VITALS (7 sets, daily range): BP systolic 134–170; BP diastolic 69–83; PULSE 63–72
[2025-03-15] MEDS: MERREM 500 MG IV ×5 (00:09→23:00)
[2025-03-15] MEDS: STERILE WATER FOR INJECTION 10 ML IV ×5 (00:09→23:50)
[2025-03-15] MEDS: TYLENOL 650 MG PO ×2 (02:53→08:21)
[2025-03-15 06:52] LABS: Hematocrit 26.2 % (39.0-52.0); Hemoglobin 8.5 g/dL (13.0-18.0); Mean Corp Hgb Conc. 32.4 g/dL (33.0-37.0); Mean Corpuscular Volume 91.3 fL (80.0-94.0); Platelet Count 349 10^3/uL (130-400); Red Cell Dist. Width 14.5 % (11.5-14.5)
[2025-03-15 07:21] LABS: Blood Urea Nitrogen 12 mg/dl (9-20); Calcium 8.6 mg/dl (8.4-10.2); Carbon Dioxide 30 mmol/L (22-30); Chloride 101 mmol/L (98-107); Estimated Creatinine Clearance 110 ml/min; Glucose 97 mg/dl (70-99); Potassium 4.5 mmol/L (3.5-5.1); Sodium 133 mmol/L (135-145); eGFR > 60.00
[2025-03-15] MEDS: TOPROL XL 25 MG PO (08:18)
[2025-03-15] MEDS: CRESTOR 10 MG PO (08:21)
[2025-03-15] MEDS: CARAFATE SUSPENSION 1 GM PO ×4 (08:21→21:42)
[2025-03-15] MEDS: PROTONIX 40 MG PO ×2 (08:21→19:40)
[2025-03-15] MEDS: RITALIN 20 MG PO ×3 (08:22→17:39)
[2025-03-15] MEDS: DESENEX/MITRAZOL/ZEASORB 1 APPLIC TOPICAL ×2 (08:22→19:40)
--- NOTE | 2025-03-15 08:47 | VATNOTE ---
Phlebitis with significant improvement from yesterday and original markings. Warm compress applied.
--- NOTE | 2025-03-15 10:38 | W.PN.ID1 ---
Date of Service
Date of Service: March 15, 2025
Today's Communication
- Continue meropenem 500mg IV q6H.
- ertapenem not as effective in setting of hypoalbuminemia
- When close to d/c, can potentially transition to Bactrim DS 1 tab bid through 03/21.
Assessment / Plan
# ESBL-Ecoli bacteremia
. Source likely from gut translocation over UTI as UA without significant pyuria
# Upper GIB from duodenal ulcer; s/p cauterization 03/10
# Leukocytosis persists adn stable
# Alcohol abuse
# Syncopal episodes
- Continue meropenem 500mg IV q6H.
- ertapenem not as effective in setting of hypoalbuminemia
- When close to d/c, can potentially transition to Bactrim DS 1 tab bid through 03/21.
- Continue contact isolation while in house
#Conditions present on admission:
Hypertension
Dyslipidemia
Alcohol abuse
ADD
Gout
Neuropathy
Chronic pain
Osteoporosis
History of right BKA, wheelchair bound
L TKR
Chief Complaint
-: Bacteremia
Subjective / Review of Systems
afebrile
bp stable
no events overnight
in good spirits
Vital Signs / Physical Exam
Vital Signs
Vital Signs
Temp Pulse Resp BP Pulse Ox
98.7 F 59 16 161/83 97
03/15/25 07:00 03/15/25 03:43 03/15/25 03:43 03/15/25 08:18 03/15/25 03:43
Physical Exam
Constitutional: No Acute Distress
Cardiovascular: Regular Rate and S1/S2; Negative Murmur or Rub
Pulmonary: Clear and Symmetric; Negative Wheezes or Rales
Gastrointestinal: Soft, Non Tender, Non Distended and Normal Bowel Sounds
Skin: Warm and Dry; Negative Rash or Jaundice
Objective Data
Lab Data
Lab Results
03/15/25 06:28
03/15/25 06:28
PT 13.9 Sec (11.4-14.6) 03/09/25 15:53
INR 1.04 03/09/25 15:53
Estimated Creat Clear 110 ml/min 03/15/25 06:28
Lactic Acid Cancelled 03/09/25 20:00
Total Bilirubin 0.4 mg/dl (0.2-1.3) 03/09/25 15:35
AST 20 U/L (17-59) 03/09/25 15:35
ALT 18 U/L (0-50) 03/09/25 15:35
Alkaline Phosphatase 44 U/L (38-126) 03/09/25 15:35
Most recent labs reviewed.
Micro Results:
03/09/25 17:11 Blood Culture - Final
Blood/Venous No Growth - Final Report
03/11/25 16:53 Blood Culture - Preliminary
Blood/Venous No Growth in 72 hours- Final report to follow
03/10/25 00:09 Urine Culture - Final
Urine Escherichia coli - ESBL
03/09/25 17:04 Blood Culture - Preliminary
Blood/Venous Escherichia coli - ESBL
Gram Stain - Preliminary
None
--- NOTE | 2025-03-15 12:11 | CM ---
CM reviewed chart, patient seen bedside.
CM discussed therapy recommendations of home therapy- patient agreeable. Referral placed to [facility] in [place].
Patient reports he has at [facility] and was supposed to have [facility]N set up afterwards but never did.
Care ongoing, CM will continue to follow for all d/c needs.
Plan; home with [facility] when stable
--- NOTE | 2025-03-15 12:47 | W.PN.HOSP.TC ---
Today's Communication/Plan
-
Continue current care plan
Follow-up hemoglobin/sodium
Possible discharge tomorrow after EP cardiology evaluation
Assessment / Plan
Assessment / Plan
1. Upper GI bleed from Duodenal ulcer
Esophagitis
Acute blood loss anemia
- Baseline hemoglobin of 14 in October 19. This admit hemoglobin of 8.1
- Reported melena ongoing for few days, noted to having bright red blood in the stool today as well per family
- Denies of any previous history of peptic ulcer disease/not on blood thinners/no history of liver disorder
- Got total of 3 unit PRBCs this admit.
- EGD showing duodenal ulcer with bleeding vessel which was cauterized, also have grade C esophagitis
- Low res diet
- GI Signed off. repeat EGD in 3 months to assess healing
2. Hypovolemic shock - resolved
- Patient got 30 mL KG fluid bolus still remained hypotensive and required to be started on Levophed briefly
- weaned off of vasopressors
3. ESBL E.coli bacteremia and UTI
- had significant leukocytosis - continue to monitor
- ID following; transitioned to Meropenem. At discharge patient recommended to be maintained on Bactrim till 03/21
- Repeat blood culture remains neg.
4. Fungal skin infection - improved
Suspected superimposed bacterial Cellulitis - resolved
- Involving left groin and lower abdomen/groin
- Skin quite erythematous and tender in left axilla and groin
5. Attention deficit disorder
- Continue home dose of Adderall 20 mg 3 times daily
6. alcohol use disorder
- Patient had stopped drinking approximately 2 weeks back
- Continuation of alcohol abstinence will be recommended moving forward
7. Syncope episode
- Reported syncope at home when was on commode. repeat periodic episodes in the hospital.
- Likely combination of vasovagal due to volume depletion/blood loss and hypotension related
- TTE report reviewed and preserved ejection fraction, no valvular issues
- Ortho vitals -lying-sitting neg.
8. Acute Hyponatremia - resolved
- hypotension related ADH increase and excess free water intake
- maintain fluid restriction
- Samsca dose x2 provided by nephrology
9. Paroxysmal atrial fibrillation vs ST with PACs
- new dx
- rate controlled currently on toprol xl
- EP cardiology to evaluate in the morning
history of right BKA
wheelchair-bound
essential hypertension
hyperlipidemia
DVT ppx: SCDs
Code: Full
Anticipated Discharge: Within 24 hours
Subjective/Interval History
-
Date of Service: March 15, 2025
No new complaints overnight
Complaining of presyncope again
No reported blood in stool
Objective Data
-
Labs:
Laboratory Results
03/15/25
06:28
WBC 7.8
Hgb 8.5 L
Hct 26.2 L
Plt Count 349
Sodium 133 L
Potassium 4.5
Chloride 101
Carbon Dioxide 30
BUN 12
Creatinine 0.9
Glucose 97
Calcium 8.6
Vital Signs:
Vital Signs
Temp Pulse Resp BP Pulse Ox
98.1 F 68 18 134/78 95
03/15/25 11:00 03/15/25 11:00 03/15/25 11:00 03/15/25 11:00 03/15/25 11:00
I&O
03/14/25 03/15/25 03/16/25
06:59 06:59 06:59
Intake Total 1620 / 1620 1170 / 1170 480 / 480
Output Total 3650 / 3650 1390 / 1390 4800 / 4800
Balance -2030 / -2030 -220 / -220 -4320 / -4320
Review of Systems
-
Respiratory: Reports No Symptoms
Cardiac: Reports No Symptoms
Abdomen/GI: Reports No Symptoms
Physical Exam
-
General: No Apparent Distress and Obese
Respiratory: Clear to Auscultation
Cardiac: Regular Rhythm and S1/S2; Negative Murmur
GI: Soft, Nontender and Nondistended
Musculoskeletal: Other (right BKA)
Neuro: Awake, Alert, Oriented and AO x 3
Psych: Calm
--- NOTE | 2025-03-15 15:29 | W.PN.NEPH.PH ---
Addendum entered and electronically signed by Renata Alarcon MD 03/17/25 21:58:
hyponatremia with underlying SIADH-CDI query
Original Note:
Today's Communication / Plan
-
cont FR
Assessment/Plan
-
64-year-old male with past medical history of attention deficit disorder, history of right BKA, alcohol use disorder, wheelchair-bound, essential hypertension, hyperlipidemia was brought in by family member after patient was noted to having
increased generalized weakness and ongoing melena for few days. Also had a syncopal event. Presented hypotensive requiring pressors status post GI workup on PPI. EGD showed duodenal ulcers which were cauterized.
Renal consultation for hyponatremia down to 123. Drinking significant amount of water and is on normal saline
Impression
Hyponatremia secondary increased ADH low blood pressures superimposed with excessive water intake
Anemia status post GI bleed status post cauterization and hypovolemic shock brief pressors. Support
Hypotension
E. coli bacteremia
Plan
Hypoantremia- possible from polydipsia+high ADH state
Fluid restriction continue
sodium stable at 133, last [facility] 03/12
Bp stable on BB
Antibiotics per ID
d/w pt
he will need f/u with PCP and BMP in week post d/c
will s/o, call with ?s
-
-
Date of Service: March 15, 2025
CC / HPI / ROS
-
Chief Complaint:
Weakness hypotension
History of Present Illness:
Weakness hypotension and hyponatremia alcohol history GI bleed
sodium stable at 133 post [facility] 03/12
bp stable
hb stable at 8.5
Review of Systems:
No chest pain or shortness of breath
eating well
Labs
-
Labs:
WBC 7.8 10^3/uL (4.8-10.8) 03/15/25 06:28
RBC 2.87 10^6/uL (4.70-6.10) L 03/15/25 06:28
Hgb 8.5 g/dL (13.0-18.0) L 03/15/25 06:28
Hct 26.2 % (39.0-52.0) L 03/15/25 06:28
Plt Count 349 10^3/uL (130-400) 03/15/25 06:28
Sodium 133 mmol/L (135-145) L 03/15/25 06:28
Potassium 4.5 mmol/L (3.5-5.1) 03/15/25 06:28
Chloride 101 mmol/L (98-107) 03/15/25 06:28
Carbon Dioxide 30 mmol/L (22-30) 03/15/25 06:28
BUN 12 mg/dl (9-20) 03/15/25 06:28
Creatinine 0.9 mg/dL (0.7-1.3) 03/15/25 06:28
eGFR > 60.00 03/15/25 06:28
Glucose 97 mg/dl (70-99) 03/15/25 06:28
Calcium 8.6 mg/dl (8.4-10.2) 03/15/25 06:28
Albumin 3.1 g/dl (3.5-5.0) L 03/09/25 15:35
Physical Exam
-
Vital Signs:
Vital Signs
Temp Pulse Resp BP Pulse Ox
98.1 F 68 18 134/78 95
03/15/25 11:00 03/15/25 11:00 03/15/25 11:00 03/15/25 11:00 03/15/25 11:00
Cardiovascular:: Regular rate and rhythm
Respiratory:: Bilateral: CTA
Lung Excursion:: Normal
Abdomen:: Nontender and Soft
Bowel Sounds:: Normal
Extremity Edema:: None: Bilateral:
Izaguirre Catheter: No
[2025-03-16] VITALS (7 sets, daily range): BP systolic 111–158; BP diastolic 58–88; PULSE 64–75
[2025-03-16] MEDS: MERREM 500 MG IV ×4 (05:40→23:12)
[2025-03-16] MEDS: STERILE WATER FOR INJECTION 10 ML IV ×4 (05:41→23:13)
[2025-03-16] MEDS: CARAFATE SUSPENSION 1 GM PO ×4 (08:02→21:06)
[2025-03-16] MEDS: TOPROL XL 25 MG PO (08:02)
[2025-03-16] MEDS: RITALIN 20 MG PO ×3 (08:02→16:52)
[2025-03-16] MEDS: PROTONIX 40 MG PO ×2 (08:02→19:10)
[2025-03-16] MEDS: CRESTOR 10 MG PO (08:02)
[2025-03-16] MEDS: DESENEX/MITRAZOL/ZEASORB 1 APPLIC TOPICAL ×2 (08:04→19:11)
[2025-03-16 08:17] LABS: Hematocrit 27.5 % (39.0-52.0); Hemoglobin 9.0 g/dL (13.0-18.0); Mean Corp Hgb Conc. 32.7 g/dL (33.0-37.0); Mean Corpuscular Volume 90.8 fL (80.0-94.0); Platelet Count 421 10^3/uL (130-400); Red Cell Dist. Width 14.2 % (11.5-14.5)
--- NOTE | 2025-03-16 08:58 | W.PN.ID1 ---
Date of Service
Date of Service: March 16, 2025
Today's Communication
At time of d/c, transition to Bactrim DS 1 tab bid through 03/21.
Assessment / Plan
# ESBL-Ecoli bacteremia
. Source likely from gut translocation over UTI as UA without significant pyuria
# Upper GIB from duodenal ulcer; s/p cauterization 03/10
# Leukocytosis resolved
- Continue meropenem 500mg IV q6H.
- At time of d/c, transition to Bactrim DS 1 tab bid through 03/21.
- Continue contact isolation while in house
#Conditions present on admission:
Hypertension
Dyslipidemia
Alcohol abuse
ADD
Gout
Neuropathy
Chronic pain
Osteoporosis
History of right BKA, wheelchair bound
L TKR
Chief Complaint
-: Bacteremia
Subjective / Review of Systems
Feels improved.
Vital Signs / Physical Exam
Vital Signs
Vital Signs
Temp Pulse Resp BP Pulse Ox
98.3 F 64 16 133/58 98
03/16/25 07:10 03/16/25 07:10 03/16/25 07:10 03/16/25 03:47 03/16/25 07:10
Physical Exam
Constitutional: No Acute Distress and Comfortable
Cardiovascular: Regular Rate and S1/S2
Pulmonary: Clear
Gastrointestinal: Soft, Non Tender and Non Distended
Genito-Urinary: Negative CVA Tenderness
Extremities: Negative Edema
Neurological: AO x 3
Objective Data
Lab Data
Lab Results
03/16/25 06:51
PT 13.9 Sec (11.4-14.6) 03/09/25 15:53
INR 1.04 03/09/25 15:53
Estimated Creat Clear 110 ml/min 03/15/25 06:28
Lactic Acid Cancelled 03/09/25 20:00
Total Bilirubin 0.4 mg/dl (0.2-1.3) 03/09/25 15:35
AST 20 U/L (17-59) 03/09/25 15:35
ALT 18 U/L (0-50) 03/09/25 15:35
Alkaline Phosphatase 44 U/L (38-126) 03/09/25 15:35
Most recent labs reviewed.
Micro Results:
03/11/25 16:53 Blood Culture - Preliminary
Blood/Venous No Growth in 4 days- Final report to follow
03/09/25 17:11 Blood Culture - Final
Blood/Venous No Growth - Final Report
03/10/25 00:09 Urine Culture - Final
Urine Escherichia coli - ESBL
03/09/25 17:04 Blood Culture - Preliminary
Blood/Venous Escherichia coli - ESBL
Gram Stain - Preliminary
None
--- NOTE | 2025-03-16 08:59 | W.PN.CD ---
Today's Communication / Plan
-
Add back lisinopril
Continue metoprolol
Watch for AFib
Afib risk factor modification
Impression / Plan
-
Tachycardia => ATach, frequent short runs now
- Reviewed all ekg's and tracings: ATach, some would say this pattern is pre-fibrillatory, we believe there is a high risk of future AFib, maybe this admit
- So Far No AFib, reviewed with Dr. Martinez and she was leaning that way as well
- AFib risk factor modification is important for him, I reviewed: ETOH elimination, BP control, sleep apnea evaluation, BMI lowering to less than 27, much more exercise
- Anticoagulation is not indicated (but will be when/if he develops AFib)
- [id number]-BKAx score is at least 3 (HTN, PAD, age1)
- Agree with addition of BB
Anemia - acute blood loss requiring 3 units PRBCs this admission.
- Management per hospitalist.
HTN, resume lisinopril
HLD - stable on Crestor.
PAD - s/p right BKA, wheelchair bound.
ADHD - chronic on meds.
ETOH, attends AA, frequently not sober. I encouraged abstinence
Subjective:
No CP. Has some palps at home
Physical Exam
Vital Signs/Labs
Vital Signs
Temp Pulse Resp BP Pulse Ox
98.3 F 64 16 133/58 98
03/16/25 07:10 03/16/25 07:10 03/16/25 07:10 03/16/25 03:47 03/16/25 07:10
03/16/25 06:51
PT 13.9 Sec (11.4-14.6) 03/09/25 15:53
INR 1.04 03/09/25 15:53
Physical Exam
Constitutional: No acute distress
EENT: Anicteric
Cardiovascular: Rhythm & rate is regular and Pedal edema is absent
Respiratory: Respiratory effort normal and Lungs clear to auscul.
GI: Soft and Distention absent
Neuro/Psych: AO x 3
Data Reviewed
-
Date of Service: March 16, 2025
[2025-03-16 09:03] LABS: Blood Urea Nitrogen 15 mg/dl (9-20); Calcium 8.6 mg/dl (8.4-10.2); Carbon Dioxide 29 mmol/L (22-30); Chloride 100 mmol/L (98-107); Estimated Creatinine Clearance 110 ml/min; Glucose 87 mg/dl (70-99); Potassium 4.4 mmol/L (3.5-5.1); Sodium 134 mmol/L (135-145); eGFR > 60.00
--- NOTE | 2025-03-16 11:30 | VATNOTE ---
Patient with reported phlebitis to right forearm. Area red, firm, swollen, and warm to touch. Patient states it is more painful over the past few hours, and he feels it looks more swollen to him. HAN Lo updated; warm compresses recommended.
Ronnell also made aware.
--- NOTE | 2025-03-16 12:25 | VNURNOTE ---
Home Health Liaison met with patient at bedside to discuss [facility] nurse/therapy, visits, schedule and homebound status. Patient is agreeable and understands that visits at home will be 2-3 x per week to assess and teach medical management. Noted
that patient is not current with his PCP. He will need to make a follow up appt w/PCP before [facility] can start services. Patient aware and verbalized understanding. Patient stated he has caregivers x 50hrs/week. He is aware that [facility] will contact
them for start of care within a week after discharge from ; after seen by PCP. Provided contact number for [facility].
[facility] referral accepted in [facility].
--- NOTE | 2025-03-16 12:40 | W.PN.HOSP.TC ---
Today's Communication/Plan
-
RUE US
continue IV Abx
dc planning
Assessment / Plan
Assessment / Plan
Assessment:
Upper GI bleed from Duodenal ulcer
Esophagitis
Acute blood loss anemia
- Baseline hemoglobin of 14 in October 19. This admit hemoglobin of 8.1
- Reported melena ongoing for few days, noted to having bright red blood in the stool today as well per family
- Denies of any previous history of peptic ulcer disease/not on blood thinners/no history of liver disorder
- Got total of 3 unit PRBCs this admit.
- EGD showing duodenal ulcer with bleeding vessel which was cauterized, also have grade C esophagitis
- continue PPI BID x 12 weeks
- Low res diet
- GI Signed off. repeat EGD in 3 months to assess healing
Hypovolemic shock - resolved
- Patient got 30 mL KG fluid bolus still remained hypotensive and required to be started on Levophed briefly
- weaned off of vasopressors
ESBL E.coli bacteremia and UTI
- had significant leukocytosis - continue to monitor
- ID following; transitioned to Meropenem. At discharge patient recommended to be maintained on Bactrim till 03/21
- Repeat blood culture remains neg.
Fungal skin infection - improved
Suspected superimposed bacterial Cellulitis - resolved
- Involving left groin and lower abdomen/groin
- Skin quite erythematous and tender in left axilla and groin
Attention deficit disorder
- Continue home dose of Adderall 20 mg 3 times daily
Alcohol use disorder
- Patient had stopped drinking approximately 2 weeks back
- Continuation of alcohol abstinence will be recommended moving forward
Syncope episode
- Reported syncope at home when was on commode. repeat periodic episodes in the hospital.
- Likely combination of vasovagal due to volume depletion/blood loss and hypotension related
- TTE report reviewed and preserved ejection fraction, no valvular issues
- EEG negative
- Ortho vitals -lying-sitting neg.
Acute Hyponatremia - resolved
- hypotension related ADH increase and excess free water intake
- maintain fluid restriction
- Samsca dose x2 provided by nephrology
Paroxysmal atrial fibrillation vs ST with PACs
- EP evaluated; Atach - no evidence of A. Fib
- continue metoprolol
- no indication for anticoagulation at present per EP
- OP f/u
RUE swelling/redness
- likely infiltrated IV site; US ordered
history of right BKA
Wheelchair-bound
essential hypertension
- continue BB/TIM
hyperlipidemia
DVT ppx: SCDs
Code: Full
Anticipated Discharge: Within 24 hours
Subjective/Interval History
-
Date of Service: March 16, 2025
reports RUE redness, slightly swelling in prior IV Site
no chest pain/sob/fever/chills
Objective Data
-
Labs:
Laboratory Results
03/16/25
06:51
WBC 7.0
Hgb 9.0 L
Hct 27.5 L
Plt Count 421 H D
Sodium 134 L
Potassium 4.4
Chloride 100
Carbon Dioxide 29
BUN 15
Creatinine 0.9
Glucose 87
Calcium 8.6
Vital Signs:
Vital Signs
Temp Pulse Resp BP Pulse Ox
97.2 F 65 18 120/65 98
03/16/25 11:28 03/16/25 11:28 03/16/25 11:28 03/16/25 11:28 03/16/25 11:28
I&O
03/15/25 03/16/25 03/17/25
06:59 06:59 06:59
Intake Total 1170 / 1170 1520 / 1520
Output Total 1390 / 1390 9575 / 9575 800 / 800
Balance -220 / -220 -8055 / -8055 -800 / -800
Physical Exam
-
General: No Apparent Distress
HEENT: Normocephalic and Atraumatic
Respiratory: Negative Wheezes
Cardiac: Irregular Rhythm
GI: Soft and Nontender
Genito-urinary: No Costovertebral Tender
Musculoskeletal: Other (RUE forearm redness, palpable cord)
Neuro: AO x 3
Psych: Calm
Data Reviewed
-
Total Time Spent with Patient (in minutes): 42
Labs: Labs Reviewed by me
[2025-03-16] MEDS: TYLENOL 650 MG PO ×2 (16:51→22:24)
[2025-03-17 03:00] VITALS: BP 148/73
[2025-03-17] MEDS: TYLENOL 650 MG PO ×2 (04:22→08:26)
[2025-03-17] MEDS: MERREM 500 MG IV ×2 (05:16→11:39)
[2025-03-17] MEDS: STERILE WATER FOR INJECTION 10 ML IV ×2 (05:17→11:39)
[2025-03-17 07:00] VITALS: BP 137/73
[2025-03-17 08:04] LABS: Hematocrit 29.2 % (39.0-52.0); Hemoglobin 9.4 g/dL (13.0-18.0); Mean Corp Hgb Conc. 32.2 g/dL (33.0-37.0); Mean Corpuscular Volume 89.6 fL (80.0-94.0); Platelet Count 445 10^3/uL (130-400); Red Cell Dist. Width 14.5 % (11.5-14.5)
[2025-03-17 08:26] LABS: Blood Urea Nitrogen 18 mg/dl (9-20); Calcium 8.8 mg/dl (8.4-10.2); Carbon Dioxide 29 mmol/L (22-30); Chloride 99 mmol/L (98-107); Estimated Creatinine Clearance 110 ml/min; Glucose 102 mg/dl (70-99); Potassium 4.3 mmol/L (3.5-5.1); Sodium 134 mmol/L (135-145); eGFR > 60.00
[2025-03-17] MEDS: TOPROL XL 25 MG PO (08:26)
[2025-03-17] MEDS: PROTONIX 40 MG PO (08:27)
[2025-03-17] MEDS: CRESTOR 10 MG PO (08:27)
[2025-03-17] MEDS: ZESTRIL 20 MG PO (08:27)
[2025-03-17] MEDS: RITALIN 20 MG PO ×2 (08:27→12:03)
[2025-03-17] MEDS: DESENEX/MITRAZOL/ZEASORB 1 APPLIC TOPICAL (08:28)
[2025-03-17] MEDS: CARAFATE SUSPENSION 1 GM PO ×2 (08:30→11:39)
[2025-03-17 11:00] VITALS: BP 144/72
--- NOTE | 2025-03-17 11:08 | W.PN.HOSP.TC ---
Today's Communication/Plan
-
dc to home/[facility]
Assessment / Plan
Assessment / Plan
Assessment:
Upper GI bleed from Duodenal ulcer
Esophagitis
Acute blood loss anemia
- Baseline hemoglobin of 14 in October 19. This admit hemoglobin of 8.1
- Reported melena ongoing for few days, noted to having bright red blood in the stool today as well per family
- Denies of any previous history of peptic ulcer disease/not on blood thinners/no history of liver disorder
- Got total of 3 unit PRBCs this admit.
- EGD showing duodenal ulcer with bleeding vessel which was cauterized, also have grade C esophagitis
- continue PPI BID x 12 weeks
- Low res diet
- GI Signed off. repeat EGD in 3 months to assess healing
Hypovolemic shock - resolved
- Patient got 30 mL KG fluid bolus still remained hypotensive and required to be started on Levophed briefly
- weaned off of vasopressors
ESBL E.coli bacteremia and UTI
- had significant leukocytosis - continue to monitor
- ID following; transitioned to Meropenem. At discharge patient recommended to be maintained on Bactrim till 03/21
- Repeat blood culture remains neg.
Fungal skin infection - improved
Suspected superimposed bacterial Cellulitis - resolved
- Involving left groin and lower abdomen/groin
- Skin quite erythematous and tender in left axilla and groin
Attention deficit disorder
- Continue home dose of Adderall 20 mg 3 times daily
Alcohol use disorder
- Patient had stopped drinking approximately 2 weeks back
- Continuation of alcohol abstinence will be recommended moving forward
Syncope episode
- Reported syncope at home when was on commode. repeat periodic episodes in the hospital.
- Likely combination of vasovagal due to volume depletion/blood loss and hypotension related
- TTE report reviewed and preserved ejection fraction, no valvular issues
- EEG negative
- Ortho vitals -lying-sitting neg.
Acute Hyponatremia - resolved
- hypotension related ADH increase and excess free water intake
- maintain fluid restriction
- Samsca dose x2 provided by nephrology
Paroxysmal atrial fibrillation vs ST with PACs
- EP evaluated; Atach - no evidence of A. Fib
- continue metoprolol
- no indication for anticoagulation at present per EP
- OP f/u
RUE swelling/redness
- US: cephalic vein within the forearm which may represent superficial thrombophlebitis
- apply warm compresses
history of right BKA
Wheelchair-bound
essential hypertension
- continue BB/TIM
hyperlipidemia
DVT ppx: SCDs
Code: Full
More than 30 minutes spent in discharge including
Final examination of the patient
Summarizing hospital stay
Instructions for continuing care to all relevant caregivers
Preparation of discharge records, prescriptions, and referral forms
Total time spent (in minutes): 41
Anticipated Discharge: Today
Subjective/Interval History
-
Date of Service: March 17, 2025
resting comfortably, no complaints at present
Objective Data
-
Labs:
Laboratory Results
03/17/25
07:32
WBC 6.8
Hgb 9.4 L
Hct 29.2 L
Plt Count 445 H
Sodium 134 L
Potassium 4.3
Chloride 99
Carbon Dioxide 29
BUN 18
Creatinine 0.9
Glucose 102 H
Calcium 8.8
Vital Signs:
Vital Signs
Temp Pulse Resp BP Pulse Ox
97.5 F 60 16 137/73 90
03/17/25 07:00 03/17/25 07:00 03/17/25 07:00 03/17/25 07:00 03/17/25 09:30
I&O
03/16/25 03/17/25 03/18/25
06:59 06:59 06:59
Intake Total 1520 / 1520 900 / 900
Output Total 9575 / 9575 2825 / 2825 350 / 350
Balance -8055 / -8055 -1925 / -1925 -350 / -350
Physical Exam
-
General: No Apparent Distress
HEENT: Normocephalic and Atraumatic
Respiratory: Negative Wheezes
Cardiac: Regular Rhythm and S1/S2
GI: Soft
Genito-urinary: No Costovertebral Tender
Neuro: AO x 3
Psych: Calm
Data Reviewed
-
Total Time Spent with Patient (in minutes): 42
Labs: Labs Reviewed by me
--- NOTE | 2025-03-17 11:21 | CM ---
CM reviewed chart, reviewed with Hospitalist and Nurse.
Patient for discharge today, home with [facility].
Patient confirms transport home.
CM will continue to follow for all d/c needs.
Plan; home with [facility]
[2025-03-17] MEDS: FLUZONE HIGH-DOSE 2025-26 0.5 ML IM (11:39)
--- NOTE | 2025-03-17 15:41 | W.DCSUMMARY ---
Discharge Summary
Discharge Data
Date of Admission: 03/09/25
Date of Discharge: 03/17/25
-
Pending Results: No
Hospital Course
64 y/o M, attention deficit disorder, history of right BKA, alcohol use disorder, wheelchair-bound, essential hypertension, hyperlipidemia presented to ER 03/09 with weakness and melena for a few days. Also endorsed dark stools with sometimes bright
red blood. GI was consulted and patient underwent EGD on 03/10 showing duodenal ulcer with bleeding vessel which was cauterized along with grade C esophagitis. He was placed on PPI drip x 72 hours then switched to oral PPI BID x 12 weeks. He will
have repeat EGD in 3 months. He also received 3 units PRBC for Hb 8.1 at time of admission. Course was complicated by hypovolemic shock briefly requiring Levophed and ICU stay.
Course was further complicated by ESBL E. Coli Bacteremia and UTI for which ID was consulted. He was placed on Meropenem with plans to continue Bactrim through 03/21.
Patient also endorsed episodes of 'blacking out' at home. Evaluation with telemetry, Echo, EEG and orthostatic vital signs did not reveal any abnormalities; it was felt patient had vagal syncope in setting of blood loss/GI bleed.
Patient also had hyponatremia in setting of hypotension causing ADH excess along with excess free water intake; he received Samsca and fluid restriction per Nephrology.
Patient also had evidence of atrial tachycardia and was placed on Metoprolol per EP cardiology.
He will repeat labs in 1 week with results to PCP.
He was discharged to home with [facility] on 03/17/25.
Discharge Plan
-
Patient Disposition: Home with Home Care
Discharge Diagnosis/Procedures: acute GI bleed requiring EGD with esophagitis and duodenal ulcer, also requiring 3 units PRBC and briefly pressors.
ESBL E. Coli UTI and bacteremia
Acute hyponatremia
Atrial tachycardia
Condition: Fair
Diet: Low Residue
Additional Diets: fluid restriction 1200 cc
Activity: As tolerated
Blood Work: repeat CBC and BMP in 1 week - script given
Other Services: [facility]
Referrals:
Gin Painter MD [Active, Gastroenterology]
Referral Note: call to arrange 4-6 week follow up appointment. Also to schedule repeat EGD to assess for healing of duodenal ulcer
Marlin Rees CRNP [Family Provider, Family Practice] - in one week
Roel Elaine MD [Active, Cardiology] - in one month
Prescriptions:
New
sulfamethoxazole-trimethoprim [Bactrim DS] 800-160 mg tablet
1 tab PO Q12H 5 Days Qty: 10 0RF
metoprolol succinate 25 mg Tablet Extended Release 24 Hr
25 mg PO DAILY Qty: 30 0RF
miconazole nitrate [Miconazorb AF] 2 % Powder
1 applic topical BID Qty: 85 0RF
sucralfate 100 mg/mL Suspension
1 g PO ACHS Qty: 600 0RF
pantoprazole 40 mg Tablet,Delayed Release (Dr/Ec)
40 mg PO BID Qty: 60 2RF
(DME) basic metabolic panel
See Rx Instructions .Route .MEDSUPPLY Qty: 1 0RF
Rx Instructions:
obtain in 1 week - results to PCP
(DME) complete blood count
See Rx Instructions .Route .MEDSUPPLY Qty: 1 0RF
Rx Instructions:
obtain in 1 week - results to PCP
Continued
acetaminophen [Tylenol Arthritis Pain] 650 MG tablet extended release
650 mg PO BIDPRN PRN (Reason: mild pain)
methylphenidate HCl 20 mg tablet
20 mg PO TID
lisinopril 20 mg Tablet
20 mg PO DAILY
alum-mag hydroxide-simeth 200-200-20 mg/5 mL Suspension
15 ml PO TIDPRN PRN (Reason: gerd)
rosuvastatin [Crestor] 10 mg Tablet
10 mg PO DAILY
duloxetine 40 mg Capsule,Delayed Release(Dr/Ec)
40 mg PO BIDPRN PRN (Reason: mild pain)
Discharge Orders:
Discharge Patient (As Directed); Ordered 03/17/25
Ordered By: Franike Reynaga
Discharge Date and Time
Discharge Date/Time: 03/17/25 15:36
Print Language: SWEDISH
== END 2025-03-17 15:36 | disposition home health service (06) | DRG 377 ==
LOC: 4 WEST ACU 17:42
PROVIDERS: Emergency Medicine; Internal Medicine; Nurse Practitioner Family; ADMITTING PHYSICIAN Hospitalist; ATTENDING PHYSICIAN Internal Medicine; CONSULT PHYSICIAN Internal Medicine Nephrology; EMERGENCY PHYSICIAN Emergency Medicine; FAMILY PHYSICIAN Nurse Practitioner Family; OTHER PHYSICIAN Internal Medicine Gastroenterology; OTHER PHYSICIAN Internal Medicine Infectious Disease; OTHER PHYSICIAN Student in an Organized Health Care Education/Training Program
PROC: 30233N1 Transfusion of Nonautologous Red Blood Cells into Peripheral Vein, Percutaneous Approach (ICD-10-PCS; 2025-03-09)
PROC: 0W3P8ZZ Control Bleeding in Gastrointestinal Tract, Via Natural or Artificial Opening Endoscopic (ICD-10-PCS; 2025-03-10)
PROC: 3E02340 Introduction of Influenza Vaccine into Muscle, Percutaneous Approach (ICD-10-PCS; 2025-03-17)
DX: K26.0 Acute duodenal ulcer with hemorrhage (principal); R57.1 Hypovolemic shock; D62 Acute posthemorrhagic anemia; I47.19 Other supraventricular tachycardia; L03.311 Cellulitis of abdominal wall; L03.314 Cellulitis of groin; R78.81 Bacteremia; E22.2 Syndrome of inappropriate secretion of antidiuretic hormone; F17.200 Nicotine dependence, unspecified, uncomplicated; K26.4 Chronic or unspecified duodenal ulcer with hemorrhage; K29.70 Gastritis, unspecified, without bleeding; K21.00 Gastro-esophageal reflux disease with esophagitis, without bleeding; B36.9 Superficial mycosis, unspecified; L08.9 Local infection of the skin and subcutaneous tissue, unspecified; I48.0 Paroxysmal atrial fibrillation; Z79.01 Long term (current) use of anticoagulants; Z99.3 Dependence on wheelchair; I10 Essential (primary) hypertension; L89.621 Pressure ulcer of left heel, stage 1; L89.011 Pressure ulcer of right elbow, stage 1; I80.8 Phlebitis and thrombophlebitis of other sites; Z79.899 Other long term (current) drug therapy; Z23 Encounter for immunization
CPT/HCPCS: 80048; 80053; 81003; 81015; 82728; 83540; 83550; 83605; 83935; 84300; 84484; 85014; 85018; 85025; 85027; 85610; 86850; 86900; 86901; 86920; 87040; 87077; 87086; 87154; 87186; 87205; 90662; 93005; 93306; 93971; 95816; 96374; 97163; 97166; 97530; 99291; 99406; G0008; J1335; P9016